=== PATIENT | male | born 1945 | race Caucasian/White ===

== ENCOUNTER 2020-07-14 14:38 | Outpatient (REF) | payer BC, MEDICARE, SELFPAY ==
[2020-07-14 16:47] LABS: Hematocrit 37.7 % (42-52); Hemoglobin 12.1 g/dl (14.0-18.0)
[2020-07-14 17:11] LABS: Anion Gap 15 (12-20); Blood Urea Nitrogen 6 mg/dL (9-16); Carbon Dioxide 25 mmol/L (22-29); Chloride 105 mmol/L (96-108); Estimated Glomerular Filt Rate > 60; Glucose Random 103 mg/dL (60-115); Potassium 3.8 mmol/l (3.3-5.1); Sodium 141 mmol/L (135-145)
[2020-07-15 08:16] LABS: SARS COV2 IgG Positive (Negative)
== END 2020-07-14 14:39 | disposition home or self-care (01) ==
LOC: HO.HMGCLDS 14:38
PROVIDERS: PCP Internal Medicine; Visit Provider Internal Medicine
DX: E78.9 Disorder of lipoprotein metabolism, unspecified (principal); I10 Essential (primary) hypertension; I48.91 Unspecified atrial fibrillation; J44.9 Chronic obstructive pulmonary disease, unspecified; U07.1 COVID-19; Z99.81 Dependence on supplemental oxygen
CPT/HCPCS: 36415; 80048; 85014; 85018; 86769

== ENCOUNTER → 2020-11-13 08:26 | Outpatient (BNVA) | payer BC, MEDICARE, SELFPAY | PROVIDERS: PCP Internal Medicine; Visit Provider Internal Medicine Pulmonary Disease | DX: J44.9 Chronic obstructive pulmonary disease, unspecified (principal); R91.1 Solitary pulmonary nodule; Z99.81 Dependence on supplemental oxygen; Z87.891 Personal history of nicotine dependence | CPT/HCPCS: 99212 ==

== ENCOUNTER 2021-01-05 09:51 | Outpatient (REF) | payer BC, MEDICARE, SELFPAY ==
[2021-01-05 11:51] LABS: Anion Gap 11 (12-20); Blood Urea Nitrogen 9 mg/dL (9-16); Calcium 8.6 mg/dL (8.4-10.2); Carbon Dioxide 26 mmol/L (22-29); Chloride 107 mmol/L (96-108); Estimated Glomerular Filt Rate > 60; Glucose Random 113 mg/dL (60-115); Sodium 140 mmol/L (135-145)
[2021-01-05 12:03] LABS: B Type Natriuretic Peptide 135 pg/mL (<100)
== END 2021-01-05 09:52 | disposition home or self-care (01) ==
LOC: HO.HMGCLDS 09:51
PROVIDERS: PCP Internal Medicine; Visit Provider Internal Medicine Cardiovascular Disease
DX: I48.0 Paroxysmal atrial fibrillation (principal)
CPT/HCPCS: 36415; 80048; 83735; 83880

== ENCOUNTER → 2021-03-02 12:41 | Outpatient (BNVA) | payer BC, MEDICARE, SELFPAY | PROVIDERS: PCP Internal Medicine; Visit Provider Internal Medicine Pulmonary Disease ==

== ENCOUNTER 2021-03-13 08:53 | Outpatient (REF) | payer BC, MEDICARE, SELFPAY ==
[2021-03-13 11:30] LABS: Glucose Urine UA NEG (NEG); Leukocyte Esterase Urine NEG (NEG); Nitrite Urine NEG (NEG); Specific Gravity - Urine 1.015 (1.005-1.025); Urine Blood NEG (NEG); Urine Ketones NEG (NEG); Urine Protein NEG (NEG-TRACE)
[2021-03-13 11:36] LABS: Appearance Urine CLEAR; Color Urine YELLOW
== END 2021-03-13 08:54 | disposition home or self-care (01) ==
LOC: HO.HMGCLDS 08:53
PROVIDERS: PCP Internal Medicine; Visit Provider Internal Medicine
DX: R82.90 Unspecified abnormal findings in urine (principal)
CPT/HCPCS: 81003

== ENCOUNTER → 2021-03-29 13:41 | Outpatient (BNVA) | payer BC, MEDICARE, SELFPAY | PROVIDERS: PCP Internal Medicine; Visit Provider Urology ==

== ENCOUNTER → 2021-05-31 09:51 | Outpatient (BNVA) | payer BC, MEDICARE, SELFPAY | PROVIDERS: PCP Internal Medicine; Visit Provider Internal Medicine Pulmonary Disease ==

== ENCOUNTER → 2021-10-09 13:08 | Outpatient (BNVA) | payer BC, MEDICARE, SELFPAY | PROVIDERS: PCP Internal Medicine; Visit Provider Internal Medicine Pulmonary Disease ==

== ENCOUNTER 2021-10-24 12:29 | Outpatient (REF) | payer BC, MEDICARE, SELFPAY ==
--- NOTE | 2021-10-24 | PFT_ITS ---
FLOWS: FEV1 38% of predicted at 1.07 L. FVC 61% of predicted at 2.40 L. FEV1 to FVC ratio of 0.45. No bronchodilator response. LUNG VOLUMES: Total lung capacity 80% of predicted at 5.32 L. Residual volume 114% of predicted at 2.81 L. Slow vital capacity 60% of predicted at 2.52 L. Expiratory reserve volume 51% of predicted at 0.56 L. Diffusion capacity is moderately decreased, diffusion capacity adjust to being mildly decreased after correction for alveolar ventilation. IMPRESSION: Severe obstructive ventilatory defect with no bronchodilator response. Decreased diffusion capacity suggests emphysema. MD ENE Rodriguez/MODL / [id number]
== END 2021-10-24 12:30 | disposition home or self-care (01) ==
LOC: HO.RESP 12:29
PROVIDERS: PCP Internal Medicine; Visit Provider Internal Medicine Pulmonary Disease
DX: R06.00 Dyspnea, unspecified (principal)
CPT/HCPCS: 94060; 94727; 94729

== ENCOUNTER 2021-12-24 12:21 | Outpatient (REF) | payer BC, MEDICARE, SELFPAY ==
[2021-12-24 13:38] LABS: MANUAL DIFF FLAG NO
[2021-12-24 13:49] LABS: Basophils Absolute Auto 0.1 X10*3/uL (0.0-0.2); Basophils Percent Auto 1.2 % (0-2); Eosinophils Absolute Auto 0.2 X10*3/uL (0.0-0.4); Eosinophils Percent Auto 2.8 % (0-4); Hematocrit 38.9 % (42.0-52.0); Hemoglobin 12.4 g/dl (14.0-18.0); Imm Gran Abs Auto 0.03 X10*3/uL (0.00-0.03); Imm Gran Pct Auto 0.4 % (0.0-0.4); Lymphocytes Absolute Auto 2.3 X10*3/uL (1.2-4.9); Lymphocytes Percent Auto 28.1 % (20-40); Mean Corpuscular HGB Conc 31.9 g/dl (31.0-36.0); Mean Corpuscular Hemoglobin 26.8 pg (27.0-33.0); Mean Platelet Volume 8.9 fL (9.4-12.4); Monocytes Absolute Auto 0.9 X10*3/uL (0.1-1.2); Monocytes Percent Auto 11.1 % (2-11); Neutrophils Absolute Auto 4.6 x10*3/uL (2.0-8.3); Neutrophils Percent Auto 56.4 % (45-73); Platelet Count 417 X10*3/uL (160-400); Red Blood Count 4.63 X10*6/uL (4.60-5.80); Red Cell Distribution Width 16.1 % (11.0-16.0); White Blood Count 8.2 X10*3/uL (4.8-10.8)
[2021-12-24 13:54] LABS: INTERNATIONAL NORM RATIO 1.2 (0.9-1.1); Prothrombin Time 13.2 SEC (9.9-13.0)
[2021-12-24 14:12] LABS: Alanine Aminotransferase 11 U/L (0-40); Albumin Level 3.9 g/dL (3.5-5.0); Alkaline Phosphatase 82 U/L (39-117); Anion Gap 12 (12-20); Aspartate Amino Transferase 15 U/L (5-37); Bilirubin Total 0.9 mg/dL (0.0-1.0); Blood Urea Nitrogen 14 mg/dL (9-16); Calcium 9.2 mg/dL (8.4-10.2); Carbon Dioxide 24 mmol/L (22-29); Chloride 106 mmol/L (96-108); Estimated Glomerular Filt Rate > 60; Glucose Random 100 mg/dL (60-115); Potassium 4.4 mmol/L (3.3-5.1); Sodium 138 mmol/L (135-145); Total Protein 6.7 g/dL (6.5-8.0)
== END 2021-12-24 12:22 | disposition home or self-care (01) ==
LOC: HO.HMGCLDS 12:21
PROVIDERS: Absent Provider Nurse Practitioner Family; PCP Internal Medicine; Visit Provider Internal Medicine
DX: I25.2 Old myocardial infarction (principal); I25.118 Atherosclerotic heart disease of native coronary artery with other forms of angina pectoris; I48.0 Paroxysmal atrial fibrillation; I10 Essential (primary) hypertension; J44.9 Chronic obstructive pulmonary disease, unspecified
CPT/HCPCS: 36415; 80048; 80053; 85025; 85610

== ENCOUNTER 2022-10-25 11:59 | Outpatient (REF) | payer BC, MEDICARE, SELFPAY | END 2022-10-25 12:00 | disposition home or self-care (01) | LOC: HO.HOSX 11:59 | PROVIDERS: Visit Provider Physician Assistant | DX: Z13.89 Encounter for screening for other disorder (principal) ==

== ENCOUNTER 2023-06-04 10:40 | Outpatient (AMB) | payer BC, MEDICARE, SELFPAY ==
[2023-06-04 10:47] VITALS: BP 142/80; PULSE 72; O2SAT 100; BMI 21.6
--- NOTE | 2023-06-04 10:47 | A.OFFVIS_ITS ---
Intake Vital Signs 06/04/23 10:47 Height 5 ft 8 in Weight 142 lb BMI 21.6 BP 142/80 H Blood Pressure Location Rt brachial Position Sitting Pulse 72 Pulse Source Pulse Oximeter Pulse Oximetry (%) 100 Oxygen Delivery Method Room Air Intake Visit Reasons: SWV G0439- needs PHQ9 Allergies lisinopril [LISINOPRIL] Allergy (Severe, Verified 06/04/23 10:48) Angioedema Penicillins [PENICILLINS] Allergy (Severe, Verified 06/04/23 10:48) Anaphylaxis erythromycin base [ERYTHROMYCIN BASE] Allergy (Intermediate, Verified 06/04/23 10:48) Rash penicillin V Allergy (Unknown, Verified 06/04/23 10:48) throat swelling and rash, anaphylaxis Medication List - Last Reconciled 06/04/23 by Mohinder Waller MD apixaban 5 mg PO BID atorvastatin 80 mg PO DAILY [id number]-poklqnyp-hjonepjoov 160-9-4.8 mcg/actuation (Breztri Aerosphere) 2 inhalations inhalation BID carvedilol 12.5 mg PO Q12H diltiazem HCl ER 360 mg PO DAILY hydralazine 50 mg PO BID 90 days ipratropium bromide 2 sprays intranasal TID isosorbide mononitrate ER 30 mg PO QAM metoprolol tartrate 50 mg PO BID omeprazole 20 mg PO BID HPI [facility] [id number]- needs PHQ9 HPI Details Patient is 77-year-old gentleman who is now started to have memory issues He is still able to drive and is quite alert today But compared to before his memory is being affected. I am booking him appointment with the Neurology for further evaluation So far patient is able to manage his finances and live independently with his girlfriend. He has missed his Cardiology and Pulmonary hip appointments because he forgot. I have printed last cardiology and Pulmonary notes and handed to patient. He lives 30 minutes away. I think it will be better if he finds our primary care close by so he can get established with specialist nearby as well Blood pressure is 142/80, all his is blood pressure medications through Cardiology office And his COPD is stable patient does have oxygen at home but he is not using it anymore, he is doing well with inhalers. GERD is stable with omeprazole 20 mg b.i.d.. He tells me that his last blood test was December of this year. That is why I have ordered labs to keep an eye on his CBC kidney function and liver functions. HPI Comments History of Present Illness Details AWV Medical/social history reviewed Past medical history reviewed [place] of care / care team list updated Surgical/ hospitalization history reviewed Current medications including OTC and supplements reviewed Family history reviewed Tobacco controlled form updated Alcohol use form updated Illicit drug use in social history reviewed Current diagnosis of depression ?screening updated Appropriate PHQ 2/PHQ-9 completed . Vital signs reviewed Alcohol tobacco drug use reviewed and discussed . MMSE completed . ? Fall risk: ?Assessed Fall history: ?Yes Have you had any falls with injury in the past year?? yes Have you had 2 or more falls in the past year??yes Fall risk assessment completed Home safety discussed with the patient Functional ability assessed and discussed and documented Activities of daily living reviewed and appropriate actions taken . HRA filled out by the patient reviewed by provider and scanned . Appropriate written screening schedule established . Any health advise needed provided . Advance care planning discussed with the patient appropriate paperwork filled and scanned . Examination IPPE/AWE: Balance intact Romberg failed Tandem walk failed walk-in turn intact rise from sit to stand intact . ?Hearing ?whisper test failed . Medication list reviewed, patient is stable on medications All other providers patient is seeing discussed and noted . [facility] Medical History Oxygen dependent Sleep apnea Lipid disorder Chronic GERD BPH (benign prostatic hyperplasia) Lung cancer Atrial fibrillation Hypertension, essential COPD (chronic obstructive pulmonary disease) Surgical History History of lobectomy of lung History of cataract surgery Family History Father No problems noted. Mother No problems noted. Brother Lung cancer Other Mental health disorder Substance use disorder Social History Housing: Other Alcohol intake: never Patient Tobacco Use Status: Former Tobacco user Quit Date: 1979 Tobacco use type: Cigarette e-Cigarette/Vaping Use: Never Used service: Yes Current occupational status: retired Cognitive needs: No Hearing needs: No Vision needs: No Questionnaire Medicare Wellness Checkup [age] What gender do you identify with?: male During the past 4 weeks, how much have you been bothered by emotional problems such as feeling anxious, depressed, irritable, sad or downhearted, and blue?: mo derately During the past 4 weeks, has your physical & emotional health limited your social activities with family, friends, neighbors, or groups?: moderately During the past 4 weeks, how much bodily pain have you generally had?: moderate pain During the past 4 weeks, was someone available to help you if you needed & wanted help?: yes, a little During the past 4 weeks, what was the hardest physical activity you could do for at least 2 minutes?: moderate Can you get to places out of walking distance without help? (For eg., can you travel alone on buses, taxis or drive your car?): No Can you go shopping for groceries or clothes without someone's help?: Yes Can you prepare your own meals?: Yes Can you do your housework without help?: Yes Because of any health problems, do you need the help of another person with your personal care needs such as eating, bathing, dressing or getting around the house?: Yes Can you handle your own money without help?: No During the past 4 weeks, how would you rate your health in general?: fair During the past 4 weeks how have things been going for you?: good & bad parts about equal Are you having difficulties driving your car?: yes, often Do you always fasten your seat belt when you are in a car?: yes, usually During past 4 weeks, have you been bothered by the following: sometimes: Falling or dizzy when standing up, Sexual problems? and Problems using the telephone?, often: Trouble eating well? and Tiredness or fatigue? and always: Teeth or denture problems? Have you fallen 2 or more times in the past year?: Yes Are you afraid of falling?: Yes Are you a smoker?: no During the past 4 weeks, how many drinks of wine, beer, or other alcoholic beverages did you have?: no alcohol at all Do you exercise for about 20 minutes 3 or more times a week?: no, I usually do not exercise this much Have you been given information to help with the following?: yes: Hazards in your house that might hurt you? and yes: Keeping track of your medications? How often do you have trouble taking medicines the way you have been told to take them?: I seldom take medications as prescribed How confident are you that you can control & manage most of your health problems?: not very confident What is your race?: White Mini Mental State Exam (MMSE) Orientation What is the (year) (season) (date) (day) (month)?: year, season, date, day and month Where are we (state) (county) (town or city) (hospital) (floor)?: state, county, town or city, hospital/clinic and floor Score Score: 10 Activity of Daily Living Bathing - sponge bath, tub bath or shower: receives no assistance (gets in/out by self, if usual bathing means Dressing - getting clothes from closets & drawers, including inner/outer garments & fasteners.: gets clothes & gets completely dressed without help Toileting - going to the 'toilet room' for urine/bowel elimination & cleaning self/arranging clothes: goes to toilet room, cleans self, arranges clothes without help Transfer: moves in & out of bed and chair without help (may use support object) Continence: controls urination/bowel movements completely by self Feeding: feeds self without help Total Score: 0 Information obtained from: patient Using telephone: independent Traveling: independent Shopping: independent Preparing meals: independent Housework: independent Taking medicine: independent Managing money: independent PHQ-9 Over the last 2 weeks, how often have you been bothered by any of the following problems? 1. Little interest or pleasure in doing things: more than half the days 2. Feeling down, depressed, or hopeless: not at all 3. Trouble falling or staying asleep, or sleeping too much: nearly every day 4. Feeling tired or having little energy: not at all 5. Poor appetite or overeating: more than half the days 6. Feeling bad about yourself - or that you are a failure or have let yourself or your family down: not at all 7. Trouble concentrating on things, such as reading the newspaper or watching television: more than half the days 8. Moving or speaking so slowly that other people could have noticed. Or the opposite - being so fidgety or restless that you have been moving around a lot more than usual: more than half the days 9. Thoughts that you would be better off or of hurting yourself in some way: not at all Total score: 11 Depression Screening Interpretation: Positive Depression Screening Follow-up: Existing condition and Community Mental Health Worker F/U Depression Screening Done: Yes [id number] - PHQ-9 Billing: Yes Source: Developed by Drs. Haja Magallon, Roseann Hicks, Cristiano Ward and colleagues, with an educational grady from [employer]. Review of Systems Const Denies chills and Denies fever(s) ENT Denies epistaxis and Denies nasal discharge Card Denies chest pain Resp Denies chest congestion, Denies cough and Denies hemoptysis GI Denies diarrhea and Denies nausea Skin/Breast Denies rash Neuro Reports no additional complaints Psych Reports no additional complaints Endo Reports no additional complaints Physical Exam Vital Signs: Last Vital Signs Pulse 72 06/04/23 10:47 BP 142/80 H 06/04/23 10:47 Pulse Ox 100 06/04/23 10:47 Oxygen Delivery Method Room Air 06/04/23 10:47 BMI result Body Mass Index 21.6 Const General: cooperative, comfortable and no acute distress Orientation/consciousness: patient oriented x3 HEENT Head: Yes normocephalic Eyes General: appearance normal, both eyes and all related structures Neck Other: Supple Neck: Yes supple Resp Effort & Inspection: normal respiratory effort, no cough and no stridor Cardio Heart sounds: S1 normal heart sound present and S2 normal heart sound present Skin General skin exam: turgor normal Neuro Other: Motor sensory intact General: patient oriented x3, tone normal and moves all extremities Extrem Other: No lower extremity swelling. Right lower extremity: no edema Left lower extremity: no edema Psych Other: Normal effect, speech clear Assessment & Plan Assessment & Plan (1) Medicare annual wellness visit, subsequent: Code(s): Z00.00 - Encounter for general adult medical examination without abnormal findings (2) Memory changes: Code(s): R41.3 - Other amnesia (3) Lipid disorder: Code(s): E78.9 - Disorder of lipoprotein metabolism, unspecified (4) BPH (benign prostatic hyperplasia): Code(s): N40.0 - Benign prostatic hyperplasia without lower urinary tract symptoms Qualifiers: Lower urinary tract symptom presence: symptoms absent Qualified Code(s): N40.0 - Benign prostatic hyperplasia without lower urinary tract symptoms (5) Chronic GERD: Code(s): K21.9 - Gastro-esophageal reflux disease without esophagitis (6) Atrial fibrillation: Comment: Dr. Michelle net technical architect Code(s): I48.91 - Unspecified atrial fibrillation Qualifiers: Atrial fibrillation type: permanent Qualified Code(s): I48.21 - Permanent atrial fibrillation (7) Hypertension, essential: Code(s): I10 - Essential (primary) hypertension (8) COPD (chronic obstructive pulmonary disease): Code(s): J44.9 - Chronic obstructive pulmonary disease, unspecified Qualifiers: COPD type: emphysema Emphysema type: panlobular Qualified Code(s): J43.1 - Panlobular emphysema Plan Patient is 77-year-old gentleman who is now started to have memory issues He is still able to drive and is quite alert today But compared to before his memory is being affected. I am booking him appointment with the Neurology for further evaluation So far patient is able to manage his finances and live independently with his girlfriend. He has missed his Cardiology and Pulmonary hip appointments because he forgot. I have printed last cardiology and Pulmonary notes and handed to patient. He lives 30 minutes away. I think it will be better if he finds our primary care close by so he can get established with specialist nearby as well Blood pressure is 142/80, all his is blood pressure medications through Cardiology office And his COPD is stable patient does have oxygen at home but he is not using it anymore, he is doing well with inhalers. GERD is stable with omeprazole 20 mg b.i.d.. He tells me that his last blood test was December of this year. That is why I have ordered labs to keep an eye on his CBC kidney function and liver functions. Orders: Orders LDL Cholesterol Direct Today E78.9 - Disorder of lipoprotein metabolism, unspecified, I10 - Essential (primary) hypertension, I48.91 - Unspecified atrial fibrillation, J44.9 - Chronic obstructive pulmonary disease, unspecified, K21.9 - Gastro-esophageal reflux disease without esophagitis, N40.0 - Benign prostatic hyperplasia without lower urinary tract symptoms, R41.3 - Other amnesia TSH reflex Free T4 Today E78.9 - Disorder of lipoprotein metabolism, unspecified, I10 - Essential (primary) hypertension, I48.91 - Unspecified atrial fibrillation, J44.9 - Chronic obstructive pulmonary disease, unspecified, K21.9 - Gastro-esophageal reflux disease without esophagitis, N40.0 - Benign prostatic hyperplasia without lower urinary tract symptoms, R41.3 - Other amnesia Vitamin B12 Today E78.9 - Disorder of lipoprotein metabolism, unspecified, I10 - Essential (primary) hypertension, I48.91 - Unspecified atrial fibrillation, J44.9 - Chronic obstructive pulmonary disease, unspecified, K21.9 - Gastro- esophageal reflux disease without esophagitis, N40.0 - Benign prostatic hyperplasia without lower urinary tract symptoms, R41.3 - Other amnesia Complete Blood Count Auto Diff Today E78.9 - Disorder of lipoprotein metabolism, unspecified, I10 - Essential (primary) hypertension, I48.91 - Unspecified atrial fibrillation, J44.9 - Chronic obstructive pulmonary disease, unspecified, K21.9 - Gastro-esophageal reflux disease without esophagitis, N40.0 - Benign prostatic hyperplasia without lower urinary tract symptoms, R41.3 - Other amnesia Comprehensive Met. Panel Today E78.9 - Disorder of lipoprotein metabolism, unspecified, I10 - Essential (primary) hypertension, I48.91 - Unspecified atrial fibrillation, J44.9 - Chronic obstructive pulmonary disease, unspecified, K21.9 - Gastro-esophageal reflux disease without esophagitis, N40.0 - Benign prostatic hyperplasia without lower urinary tract symptoms, R41.3 - Other amnesia Vitamin D 25-OH (D2 and D3) Today E78.9 - Disorder of lipoprotein metabolism, unspecified, I10 - Essential (primary) hypertension, I48.91 - Unspecified atrial fibrillation, J44.9 - Chronic obstructive pulmonary disease, unspecified, K21.9 - Gastro-esophageal reflux disease without esophagitis, N40.0 - Benign prostatic hyperplasia without lower urinary tract symptoms, R41.3 - Other amnesia Referrals Neurology Referral R41.3 - Other amnesia Quality Reporting (2019) Depression/Bipolar (159/160/161/177) PHQ-9: Total score: 11 Coding Level of Care Code Medicare Subsequent (G0439) Est Pt Level 4 (96168) Diagnoses Medicare annual wellness visit, subsequent Z00.00 Memory changes R41.3 Lipid disorder E78.9 Benign prostatic hyperplasia without lower urinary tract symptoms N40.0 Lower urinary tract symptom presence: symptoms absent Chronic GERD K21.9 Permanent atrial fibrillation I48.21 Atrial fibrillation type: permanent Hypertension, essential I10 Panlobular emphysema J43.1 COPD type: emphysema Emphysema type: panlobular CPT Codes Advance Care Planning - Advance Care Planning discussion: On file, no changes ([id number]) Advance Care Planning Advance Care Planning discussion: On file, no changes
== END 2023-06-04 12:09 | disposition home or self-care (01) ==
PROVIDERS: Visit Provider Internal Medicine
DX: Z00.00 Encounter for general adult medical examination without abnormal findings (principal); I48.21 Permanent atrial fibrillation; J43.1 Panlobular emphysema; R41.3 Other amnesia; E78.9 Disorder of lipoprotein metabolism, unspecified; N40.0 Benign prostatic hyperplasia without lower urinary tract symptoms; K21.9 Gastro-esophageal reflux disease without esophagitis; I10 Essential (primary) hypertension
CPT/HCPCS: 1123F; G0439

== ENCOUNTER 2023-07-28 10:04 | Outpatient (REF) | payer MEDICARE, BC, SELFPAY ==
[2023-07-28 13:37] LABS: MANUAL DIFF FLAG NO
[2023-07-28 14:07] LABS: Basophils Absolute Auto 0.1 X10*3/uL (0.0-0.2); Basophils Percent Auto 1.1 % (0-2); Eosinophils Absolute Auto 0.2 X10*3/uL (0.0-0.4); Eosinophils Percent Auto 2.7 % (0-4); Hematocrit 39.6 % (42.0-52.0); Hemoglobin 12.6 g/dl (14.0-18.0); Imm Gran Abs Auto 0.03 X10*3/uL (0.00-0.03); Imm Gran Pct Auto 0.3 % (0.0-0.4); Lymphocytes Percent Auto 21.7 % (20-40); Mean Corpuscular HGB Conc 31.8 g/dl (31.0-36.0); Mean Corpuscular Hemoglobin 27.6 pg (27.0-33.0); Mean Corpuscular Volume 86.8 fL (80.0-98.0); Monocytes Absolute Auto 0.8 X10*3/uL (0.1-1.2); Monocytes Percent Auto 8.5 % (2-11); Neutrophils Absolute Auto 5.9 x10*3/uL (2.0-8.3); Neutrophils Percent Auto 65.7 % (45-73); Platelet Count 407 X10*3/uL (160-400); Red Blood Count 4.56 X10*6/uL (4.60-5.80); Red Cell Distribution Width 14.5 % (11.0-16.0)
[2023-07-28 14:30] LABS: Alanine Aminotransferase 9 U/L (0-40); Albumin Level 3.9 g/dL (3.5-5.0); Alkaline Phosphatase 84 U/L (39-117); Anion Gap 13 (12-20); Aspartate Amino Transferase 17 U/L (5-37); Bilirubin Total 0.5 mg/dL (0.0-1.0); Blood Urea Nitrogen 10 mg/dL (9-16); Calcium 8.9 mg/dL (8.4-10.2); Carbon Dioxide 24 mmol/L (22-29); Chloride 108 mmol/L (96-108); Estimated Glomerular Filt Rate > 60; Glucose Random 101 mg/dL (60-115); Potassium 4.5 mmol/L (3.3-5.1); Sodium 140 mmol/L (135-145); TSH reflex Free T4 2.12 uIU/mL (0.32-4.0); Total Protein 7.1 g/dL (6.5-8.0)
[2023-07-28 14:35] LABS: Vitamin B12 336 pg/mL (200-900)
[2023-07-29 14:13] LABS: LDL Cholesterol Direct 154 mg/dL (<100)
[2023-08-01 15:23] LABS: Vitamin D 25-OH, D2 <4 ng/mL; Vitamin D 25-OH, D3 15 ng/mL; Vitamin D 25-OH, Total 15 ng/mL (30-100)
== END 2023-07-28 10:05 | disposition home or self-care (01) ==
LOC: HO.HMGCLDS 10:04
PROVIDERS: PCP Internal Medicine; Visit Provider Internal Medicine
DX: R41.3 Other amnesia (principal); E78.9 Disorder of lipoprotein metabolism, unspecified; N40.0 Benign prostatic hyperplasia without lower urinary tract symptoms; K21.9 Gastro-esophageal reflux disease without esophagitis; I48.91 Unspecified atrial fibrillation; I10 Essential (primary) hypertension; J44.9 Chronic obstructive pulmonary disease, unspecified
CPT/HCPCS: 36415; 80053; 82306; 82607; 83721; 84443; 85025

== ENCOUNTER 2023-07-29 12:50 | Outpatient (AMB) | payer MEDICARE, BC, SELFPAY ==
[2023-07-29 13:01] VITALS: BP 152/78; PULSE 79; O2SAT 97; BMI 22.0
--- NOTE | 2023-07-29 13:01 | A.OFFPC_ITS ---
Vital Signs 07/29/23 13:01 Height 5 ft 8 in Weight 144 lb 8 oz BMI 22.0 BP 152/78 H Blood Pressure Location Rt brachial Position Sitting Pulse 79 Pulse Source Pulse Oximeter Pulse Oximetry (%) 97 Oxygen Delivery Method Room Air Intake Visit Reasons: Medication follow up Allergies lisinopril [LISINOPRIL] Allergy (Severe, Verified 07/29/23 13:02) Angioedema Penicillins [PENICILLINS] Allergy (Severe, Verified 07/29/23 13:02) Anaphylaxis erythromycin base [ERYTHROMYCIN BASE] Allergy (Intermediate, Verified 07/29/23 13:02) Rash penicillin V Allergy (Unknown, Verified 07/29/23 13:02) throat swelling and rash, anaphylaxis Medication List - Last Reconciled 07/29/23 by Mohinder Waller MD apixaban 5 mg PO BID atorvastatin 80 mg PO DAILY gfvbamlzkv-mcmahzqg-xvvfkeuvsg 160-9-4.8 mcg/actuation (Breztri Aerosphere) 2 inhalations inhalation BID carvedilol 12.5 mg PO Q12H diltiazem HCl ER 360 mg PO DAILY hydralazine 50 mg PO BID 90 days ipratropium bromide 2 sprays intranasal TID isosorbide mononitrate ER 30 mg PO QAM metoprolol tartrate 50 mg PO BID omeprazole 20 mg PO BID Tobacco use date assessed: 07/29/23 Fall risk assessment: 2 + Falls in past year Last assessed Fall Risk: 07/29/23 Dental Screening Dental Screen Date: 07/29/23 Did you have a dental visit in the last 12 months?: No Did you have a dental problem in the last 6 months where you did not have access to dental care?: No Was dental information given to patient?: No HPI Medication follow up HPI Details Patient is 77-year-old gentleman came in today to have a letter formulated for his work Patient would like to have a list of all his medical problems and a letter stating that patient have gastroesophageal reflux disease He is also requesting refill on omeprazole 20 mg that he is taking b.i.d. Patient is having memory issues, he finally got a letter form Neurology office to call in book appointment. Blood pressure is slightly elevated, notified patient to call his cardiopulmonary physical therapist office and have a follow-up appointment blood pressure is managed through them. [facility] Medical History Oxygen dependent Sleep apnea Lipid disorder Chronic GERD BPH (benign prostatic hyperplasia) Lung cancer Atrial fibrillation Hypertension, essential COPD (chronic obstructive pulmonary disease) Surgical History History of lobectomy of lung History of cataract surgery Family History Father No problems noted. Mother No problems noted. Brother Lung cancer Other Mental health disorder Substance use disorder Social History Housing: Other Alcohol intake: never Patient Tobacco Use Status: Former Tobacco user Quit Date: 1979 Tobacco use type: Cigarette e-Cigarette/Vaping Use: Never Used service: Yes Current occupational status: retired Cognitive needs: No Hearing needs: No Vision needs: No Questionnaire Thrive Questionnaire Date Thrive assessed: 10/26/21 AUDIT C Alcohol Use Questionnaire (AUDIT-C) 1. How often do you have a drink containing alcohol?: Never 3. How often do you have six or more drinks on one occasion?: Never Total Score: 0 Score Reviewed/Action Taken: Yes SHAHBAZ-7 AMB Questionnaire SHAHBAZ-7 Date SHAHBAZ - 7 assessed: 10/26/21 Source: Developed by Drs. Haja Magallon, Roseann Hicks, Cristiano Ward and colleagues, with an educational grady from [employer]. Review of Systems Const Denies chills and Denies fever(s) ENT Denies epistaxis and Denies nasal discharge Card Denies chest pain Resp Denies chest congestion, Denies cough and Denies hemoptysis GI Denies diarrhea and Denies nausea Skin/Breast Denies rash Neuro Reports no additional complaints Psych Reports no additional complaints Endo Reports no additional complaints Physical exam (Primary Care) Vital Signs: Last Vital Signs Pulse 79 07/29/23 13:01 BP 152/78 H 07/29/23 13:01 Pulse Ox 97 07/29/23 13:01 Oxygen Delivery Method Room Air 07/29/23 13:01 BMI result Body Mass Index 22.0 Tobacco/Smoking Status: Tobacco use Status Tobacco use date assessed 07/29/23 07/29/23 13:03 Patient Tobacco Use Status Former Tobacco user 07/29/23 13:03 Tobacco use type Cigarette 07/29/23 13:03 e-Cigarette/Vaping Use Never Used 07/29/23 13:03 Thrive Assessment: Date of Thrive Assessment Date Thrive assessed 10/26/21 07/29/23 13:03 Const General: cooperative, comfortable and no acute distress Orientation/consciousness: patient oriented x3 HENMT Head: Yes normocephalic Eyes General: appearance normal, both eyes and all related structures Neck Neck: Yes supple Resp Effort & Inspection: normal respiratory effort, no cough and no stridor Cardio Rhythm: regular rhythm Heart sounds: S1 normal heart sound present and S2 normal heart sound present Skin General skin exam: turgor normal Neuro General: patient oriented x3, tone normal and moves all extremities Extrem Right lower extremity: no edema Left lower extremity: no edema Assessment and Plan Assessment & Plan (1) Chronic GERD: Code(s): K21.9 - Gastro-esophageal reflux disease without esophagitis (2) Atrial fibrillation: Comment: Dr. Michelle cardiopulmonary physical therapist Code(s): I48.91 - Unspecified atrial fibrillation Qualifiers: Atrial fibrillation type: permanent Qualified Code(s): I48.21 - Permanent atrial fibrillation (3) Hypertension, essential: Code(s): I10 - Essential (primary) hypertension (4) COPD (chronic obstructive pulmonary disease): Code(s): J44.9 - Chronic obstructive pulmonary disease, unspecified Qualifiers: COPD type: emphysema Emphysema type: panlobular Qualified Code(s): J43.1 - Panlobular emphysema (5) Multiple medical problems: Code(s): R69 - Illness, unspecified (6) Lung cancer: Comment[place] [facility] [place] Code(s): C34.90 - Malignant neoplasm of unspecified part of unspecified bronchus or lung Qualifiers: Laterality: right Lung location: upper lobe of lung Qualified Code(s): C34.11 - Malignant neoplasm of upper lobe, right bronchus or lung Plan Patient is 77-year-old gentleman came in today to have a letter formulated for his work Patient would like to have a list of all his medical problems and a letter stating that patient have gastroesophageal reflux disease He is also requesting refill on omeprazole 20 mg that he is taking b.i.d. Patient is having memory issues, he finally got a letter form Neurology office to call in book appointment. Blood pressure is slightly elevated, notified patient to call his cardiopulmonary physical therapist office and have a follow-up appointment blood pressure is managed through them. 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
== END 2023-07-29 16:54 | disposition home or self-care (01) ==
PROVIDERS: PCP Internal Medicine; Visit Provider Internal Medicine
DX: K21.9 Gastro-esophageal reflux disease without esophagitis (principal); I48.21 Permanent atrial fibrillation; J43.1 Panlobular emphysema; C34.11 Malignant neoplasm of upper lobe, right bronchus or lung; I10 Essential (primary) hypertension; R69 Illness, unspecified
CPT/HCPCS: 99214

== ENCOUNTER 2023-09-04 14:41 | Outpatient (AMB) | payer MEDICARE, BC, SELFPAY ==
[2023-09-04 14:50] VITALS: BP 132/62; PULSE 65; O2SAT 99; BMI 21.6
--- NOTE | 2023-09-04 14:50 | A.OFFVIS_ITS ---
Intake Vital Signs 09/04/23 14:50 Height 5 ft 8 in Weight 142 lb 3.17 oz BMI 21.6 BP 132/62 Blood Pressure Location Rt brachial Position Sitting Pulse 65 Pulse Source Doppler Pulse Oximetry (%) 99 Oxygen Delivery Method Room Air Intake Visit Reasons: copd Allergies lisinopril [LISINOPRIL] Allergy (Severe, Verified 09/04/23 14:58) Angioedema Penicillins [PENICILLINS] Allergy (Severe, Verified 09/04/23 14:58) Anaphylaxis erythromycin base [ERYTHROMYCIN BASE] Allergy (Intermediate, Verified 09/04/23 14:58) Rash penicillin V Allergy (Unknown, Verified 09/04/23 14:58) throat swelling and rash, anaphylaxis HPI copd HPI Details 77-year-old gentleman, former greater th an 30 pack-year smoker, quit 2006 with underlying 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 supplemental oxygen dependent COPD.? He continues BrezTri and albuterol MDI/DuoNebs with reasonable control of his underlying symptoms.?He denies recent exacerbation of his COPD. He recently been diagnosed with 4 vessel coronary artery disease. He wants to transfer his cardiology care to [facility]. [facility] Medical History Oxygen dependent Sleep apnea Lipid disorder Chronic GERD BPH (benign prostatic hyperplasia) Lung cancer Atrial fibrillation Hypertension, essential COPD (chronic obstructive pulmonary disease) Surgical History History of lobectomy of lung History of cataract surgery Family History Father No problems noted. Mother No problems noted. Brother Lung cancer Other Mental health disorder Substance use disorder Social History Housing: Other Alcohol intake: never Patient Tobacco Use Status: Former Tobacco user Quit Date: 1979 Tobacco use type: Cigarette e-Cigarette/Vaping Use: Never Used service: Yes Current occupational status: retired Cognitive needs: No Hearing needs: No Vision needs: No Review of Systems Const Denies daytime sleepiness, Denies excessive sweating, Denies fatigue, Denies fever(s), Denies lethargy, Denies malaise, Denies night sweats, Denies snoring and Denies weight loss Eyes Denies blurry vision and Denies itchy eyes ENT Denies nasal congestion, Denies post nasal drip, Denies sinus pain, Denies sinus pressure and Denies other ( Thrush) Card Denies chest pain, Denies pedal edema, Denies dyspnea, Denies orthopnea and Denies paroxysmal nocturnal dyspnea Resp Denies cough, Denies hemoptysis, Denies excessive phlegm production, Denies dyspnea, Denies snoring and Denies wheezing GI Denies abdominal pain and Denies heartburn Musc Denies myalgias, Denies arthralgias and Denies joint swelling Skin/Breast Denies rash Neuro Denies memory loss and Denies seizure-like activity Psych Denies abnormal sleep pattern, Denies anxiety and Denies memory loss Endo Denies excessive sweating, Denies fatigue and Denies heat intolerance Adán/Lymph Denies easy bruising Aller/Immun Denies itchy eyes, Denies seasonal rhinorrhea and Denies wheezing Physical Exam Vital Signs: Last Vital Signs Pulse 65 09/04/23 14:50 BP 132/62 09/04/23 14:50 Pulse Ox 99 09/04/23 14:50 Oxygen Delivery Method Room Air 09/04/23 14:50 BMI result Body Mass Index 21.6 Const General: no acute distress and alert Nutritional Appearance: not obese Orientation/consciousness: Other orientation findings ( oriented) HEENT Head: Yes atraumatic Eyes General: appearance normal, both eyes and all related structures Sclerae: sclerae normal EOM: EOMs intact bilaterally Neck Neck: Yes supple Lymphatic: no lymphadenopathy noted Resp Effort & Inspection: normal respiratory effort and no use of accessory muscles Auscultation: clear to auscultation bilaterally Cardio Rate: regular rate Rhythm: regular rhythm Heart sounds: no gallops, no murmurs and no rubs Skin General skin exam: other ( warm) Extrem General: No clubbing, No cyanosis and No edema Assessment & Plan Assessment & Plan (1) COPD (chronic obstructive pulmonary disease): Code(s): J44.9 - Chronic obstructive pulmonary disease, unspecified Qualifiers: COPD type: emphysema Emphysema type: panlobular Qualified Code(s): J43.1 - Panlobular emphysema Plan: Well controlled on BrezTri and albuterol MDI. Continue current regimen. (2) Oxygen dependent: Code(s): Z99.81 - Dependence on supplemental oxygen Plan: Continue supplemental oxygen to maintain O2 saturation of 88-92%. (3) Coronary artery disease: Code(s): I25.10 - Atherosclerotic heart disease of [place] coronary artery without angina pectoris Plan: Patient wants to transfer his cardiology care to [facility]. Cardiology consultation request placed. (4) Pulmonary nodules: Code(s): R91.8 - Other nonspecific abnormal finding of lung field Plan: Patient continues to follow-up with [facility] thoracic surgery. Orders: Referrals Cardiology Referral I25.10 - Atherosclerotic heart disease of [place] coronary artery without angina pectoris Medications: New nitroglycerin do not exceed 3 doses per episode 0.4 mg sublingual Q5M PRN 60 tabs 0RF chest pain Refilled [id number]-bsyrckpn-fzyrpfbnep 160-9-4.8 mcg/actuation (Breztri Aerosphere) 2 inhalations inhalation BID 10.7 ea 6RF Coding Level of Care Code Est Pt Level 4 (62667) Diagnoses Panlobular emphysema J43.1 COPD type: emphysema Emphysema type: panlobular Oxygen dependent Z99.81 Coronary artery disease I25.10 Pulmonary nodules R91.8
== END 2023-09-04 15:12 | disposition home or self-care (01) ==
PROVIDERS: PCP Internal Medicine; Visit Provider Internal Medicine Pulmonary Disease
DX: J43.1 Panlobular emphysema (principal); Z99.81 Dependence on supplemental oxygen; I25.10 Atherosclerotic heart disease of native coronary artery without angina pectoris; R91.8 Other nonspecific abnormal finding of lung field
CPT/HCPCS: 99214

== ENCOUNTER → 2023-09-04 14:41 | Outpatient (BNVA) | payer MEDICARE, BC, SELFPAY | PROVIDERS: PCP Internal Medicine; Visit Provider Internal Medicine Pulmonary Disease | DX: J43.1 Panlobular emphysema (principal); I25.10 Atherosclerotic heart disease of native coronary artery without angina pectoris; R91.8 Other nonspecific abnormal finding of lung field; Z99.81 Dependence on supplemental oxygen | CPT/HCPCS: 99212 ==

== ENCOUNTER → 2023-09-29 10:04 | Outpatient (BNVA) | payer MEDICARE, BC, SELFPAY | PROVIDERS: PCP Internal Medicine; Visit Provider Internal Medicine Pulmonary Disease ==

== ENCOUNTER 2023-11-18 12:56 | Outpatient (AMB) | payer MEDICARE, BC, SELFPAY ==
[2023-11-18 12:58] VITALS: BP 127/72; PULSE 74; BMI 22.5
--- NOTE | 2023-11-18 12:58 | MHC.OFFVIS ---
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/HELENA Intake Note: New patient dx CAD patient hasn't been taking most of his med's since one of the hospital stays Meat Grader Required: No Allergies lisinopril [LISINOPRIL] Allergy (Severe, Verified 09/29/23 10:54) Angioedema Penicillins [PENICILLINS] Allergy (Severe, Verified 09/29/23 10:54) Anaphylaxis erythromycin base [ERYTHROMYCIN BASE] Allergy (Intermediate, Verified 09/29/23 10:54) Rash penicillin V Allergy (Unknown, Verified 09/29/23 10:54) throat swelling and rash, anaphylaxis Medication List - Last Reconciled 11/18/23 by Trent Triplett MD apixaban 5 mg PO BID txmfrvvudcs-mjkpazzpb-fgioldqc 200-62.5-25 mcg (Trelegy Ellipta) 1 inh inhalation DAILY 30 days nitroglycerin 0.4 mg sublingual Q5M PRN omeprazole 20 mg PO BID HPI HPI Comments History of Present Illness Details Thank you for referring Edwardo in cardiology consultation for management of his cardiovascular issues. He has a very poor historian and seems like he has cognitive issues. He is not able to provide a very accurate history. I to lead him in 2 multiple different history. I did review his old records including prior stenting in 2021 the LAD for what appears to be acute myocardial infarction which was complicated by acute stent thrombosis and was taken to the catholic priest the same day and had a thrombus formation on the newly implanted stent and he underwent a balloon angioplasty. Subsequently in 2021 he had another chest pain event and underwent cardiac catheterization very had extensive stenting from distal to proximal RCA for dissection of his RCA. He said he has had chest pain since he was young man in . However I discussed with him that this is potentially not possible. However he says that he continues to have exertional chest pain. He usually describes this chest pain is sharp pain something inside and symptoms subsided when he rests. Symptoms sound like anginal discomfort. He has also had history of atrial fibrillation although the timeline on this is unclear. He said about couple months ago he had an episode and about of atrial fibrillation he felt rapid heart rate while he was sleeping and then he does went to bed and woke up in the morning in his atrial fibrillation gone. He has not had any other atrial fibrillation episode. Also mentions about heart failure issues although I do not see that any medications he is on currently. He is currently only taking apixaban, omeprazole and his COPD med. He was admitted in October at [facility] with what appears to be a syncopal episode which is suspected to be due to relative hypovolemia and urinary tract infection. At that time it seems like his other cardiac meds including diltiazem and carvedilol and hydralazine as well as isosorbide will discontinued. He comes in today and he complains of the chest pain as above. He also is noted to have normal blood pressure. He has currently not on statin therapy for unclear reason. Does not recall as to why. His last LDL was 150 mg/dL. He denies any clear heart failure symptoms. Although history is very difficult to obtain from him. He has history of lung cancer status post surgery and he said he has lost a lot of weight. [facility] Medical History Paroxysmal atrial fibrillation Atrial fibrillation Oxygen dependent Sleep apnea Lipid disorder Chronic GERD BPH (benign prostatic hyperplasia) Lung cancer Hypertension, essential COPD (chronic obstructive pulmonary disease) Surgical History History of lobectomy of lung History of cataract surgery Family History Father No problems noted. Mother No problems noted. Brother Lung cancer Other Mental health disorder Substance use disorder Social History Housing: Other Alcohol intake: never Patient Tobacco Use Status: Former Tobacco user Quit Date: 1979 Tobacco use type: Cigarette e-Cigarette/Vaping Use: Never Used service: Yes Current occupational status: retired Cognitive needs: No Hearing needs: No Vision needs: No Review of Systems Const Denies chills, Denies daytime sleepiness, Denies fatigue, Denies fever(s), Denies frequent falls, Denies poor appetite, Denies snoring, Denies stops breathing during sleep, Denies weakness, Denies weight gain and Denies weight loss Eyes Denies loss of vision ENT Denies dizziness and Denies hearing loss Card Denies chest pain, Denies claudication, Denies leg edema, Denies lightheadedness, Denies palpitations, Denies dyspnea, Denies dyspnea on exertion and Denies orthopnea Resp Denies cough, Denies excessive phlegm production, Denies dyspnea, Denies dyspnea on exertion, Denies snoring and Denies wheezing GI Denies abdominal pain, Denies hematochezia, Denies change in bowel habits, Denies nausea and Denies vomiting Denies dysuria and Denies urinary frequency Musc Denies arthralgias, Denies muscle weakness, Denies numbness and Denies other (frequent falls) Skin/Breast Denies nail changes and Denies rash Neuro Denies Abnormal speech present, Denies dizziness, Denies frequent falls, Denies loss of vision, Denies memory loss, Denies numbness and Denies weakness Psych Denies depression and Denies memory loss Endo Denies fatigue and Denies palpitations Adán/Lymph Reports easy bruising and Reports other (anemia) Aller/Immun Denies wheezing Physical Exam Vital Signs: Last Vital Signs Pulse 74 11/18/23 12:58 BP 127/72 11/18/23 12:58 BMI result Body Mass Index 22.5 Const General: cooperative, comfortable, no acute distress, alert, awake and Physically active Nutritional Appearance: thin Orientation/consciousness: patient oriented x3 Limitations: no limitations HEENT Head: Yes normocephalic and Yes atraumatic Neck Neck: Yes trachea midline, Yes supple and Yes no JVD Resp Effort & Inspection: normal respiratory effort Auscultation: clear to auscultation bilaterally and diminished lung sounds Cardio Jugular venous distension: no JVD Palpation: normal PMI Rate: regular rate Rhythm: abnormal rhythm with ectopic beats Heart sounds: S1 normal heart sound present, S2 normal heart sound present, no click, no gallops and Murmur heart sound present systolic early, decrescendo and crescendo GI Auscultation: normal bowel sounds Skin General skin exam: no rashes or lesions noted Neuro General: patient oriented x3 and no focal motor deficits Speech: No Abnormal speech present Extrem General: Yes no clubbing, cyanosis or edema Psych Appearance: grossly normal Office Procedures EKG Details: EKG shows normal sinus rhythm with normal EKG [id number], Complete Assessment & Plan Assessment & Plan (1) Chest pain: Code(s): R07.9 - Chest pain, unspecified Plan: Patient with longstanding chest pain episode and says the chest pain episodes similar since he was young man but also concerning for exertional chest pain syndrome and suggestive angina. His extensive history of coronary artery disease in the past. History is limited probably due to his cognitive issues. I have advised him to undergo exercise myocardial perfusion imaging to evaluate for myocardial ischemia that may changes medical treatment plan. Meanwhile I will start him on low-dose Toprol-XL 25 mg daily given his recent syncopal event and blood pressure in the normotensive range today. Would hold off on other medications at this point time. Also suggest echocardiogram to evaluate LV systolic and diastolic function to evaluate for regional wall motion abnormality in pulmonary hypertension. Further treatment based on the findings. Advised to come to the emergency room he has prolonged unrelieved chest pain at rest. (2) Coronary artery disease: Code(s): I25.10 - Atherosclerotic heart disease of [place] coronary artery without angina pectoris Plan: Extensive CAD with prior stenting to the LAD in 2019 and then stenting to the RCA in 2021. He did have moderate nonobstructive disease in the circumflex territory. Currently having chest pain syndrome which is concerning. Not on antiplatelet regimen given that he is on full oral anticoagulation to reduce bleeding risk. His blood pressure is optimized although I will start him on low-dose metoprolol therapy as above. He has not on statin therapy for unclear reason. Will start him on Lipitor to try to target his goal LDL less than 70 mg/dL. Follow-up lipid panel in 6 weeks time. (3) Paroxysmal atrial fibrillation: Code(s): I48.0 - Paroxysmal atrial fibrillation Plan: Paroxysmal atrial fibrillation, currently suppressed with 1 episode about 2 months ago. History is very difficult to obtain. Will obtain a 7 day Holter monitor. Start him on Toprol-XL 25 mg daily. Stress mitigation strategies avoidance stimulants was discussed. Continue current full oral anticoagulation Eliquis 5 mg b.i.d.. Quarterly renal function test should be pursued. Follow up in the clinic in 6 weeks time, sooner p.r.n.. Thank you for allowing me to partake in his care Orders: Orders NM cardiolite stress test 2 Weeks R07.9 - Chest pain, unspecified ECG 7 day holter monitor Today I48.0 - Paroxysmal atrial fibrillation CA echo transthoracic complete Today R07.9 - Chest pain, unspecified CA stress test Today R07.9 - Chest pain, unspecified Lipid Panel 6 Weeks I25.10 - Atherosclerotic heart disease of [place] coronary artery without angina pectoris Medications: New metoprolol succinate ER (Toprol XL) 25 mg PO DAILY 30 tabs 5RF I48.0 - Paroxysmal atrial fibrillation atorvastatin 80 mg PO DAILY 30 tabs 5RF I48.0 - Paroxysmal atrial fibrillation Coding Level of Care Code New Pt Level 4 (17570) Diagnoses Chest pain R07.9 Coronary artery disease I25.10 Paroxysmal atrial fibrillation I48.0 CPT Codes EKG - CPT: 27338-[id number], Complete ([id number])
== END 2023-11-18 13:44 | disposition home or self-care (01) ==
PROVIDERS: PCP Internal Medicine; Visit Provider Internal Medicine Cardiovascular Disease
DX: R07.9 Chest pain, unspecified (principal); I25.10 Atherosclerotic heart disease of native coronary artery without angina pectoris; I48.0 Paroxysmal atrial fibrillation
CPT/HCPCS: 93010; 99204

== ENCOUNTER → 2023-11-18 12:56 | Outpatient (BNVA) | payer MEDICARE, BC, SELFPAY | PROVIDERS: PCP Internal Medicine; Visit Provider Internal Medicine Cardiovascular Disease | DX: R07.9 Chest pain, unspecified (principal); I25.10 Atherosclerotic heart disease of native coronary artery without angina pectoris; I48.0 Paroxysmal atrial fibrillation; Z79.899 Other long term (current) drug therapy | CPT/HCPCS: 93005; 99202 ==

== ENCOUNTER → 2023-12-10 12:40 | Outpatient (REF) | payer MEDICARE, BC, SELFPAY ==
--- NOTE | 2023-12-10 12:49 | CA_ITS ---
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 The calculated ejection fraction is 53% by biplane method. - The basal inferior, mid inferior, and basal inferolateral segments are hypokinetic. - There is moderate calcification of the aortic valve. There is mild aortic valve stenosis. Findings Left Ventricle Normal left ventricular cavity size. There is normal left ventricular wall thickness. The left ventricular systolic function is low normal. The calculated ejection fraction is 53% by biplane method. Diastolic function is indeterminate on the basis of available data. Wall Motion Rest Echo Findings The basal inferior, mid inferior, and basal inferolateral segments are hypokinetic. Right Ventricle Normal right ventricular cavity size and systolic function. Atria Both atria are normal in size. Aortic Valve There is moderate calcification of the aortic valve. There is mild aortic valve stenosis. There is trace (trivial) aortic valve regurgitation. Mitral Valve The mitral valve appears normal. There is mild mitral annular calcification. There is trace mitral valve regurgitation. There is no mitral valve stenosis. Pulmonic Valve The pulmonic valve is likely normal. Tricuspid Valve There is mild tricuspid valve regurgitation. There is no evidence of pulmonary hypertension. Great Vessels The aorta was not well visualized. Venous The inferior vena cava is normal in size and collapses greater than 50% with inspiration. Pericardium/Pleural There is no evidence of pericardial effusion. Prior Study Comparison No prior study available for comparison. Measurements 2D Linear Measurements IVSd: 0.82 0.6-0.9/0.6-1.0 cm LVIDd: 4.19 3.9-5.3/4.2-5.9 cm LVIDd Index: 2.35 2.4-3.2/2.2-3.1 cm/m2 LVIDs: 3.36 2.0-3.6 cm LVPWd: 0.72 0.7-1.1 cm LA Diam: 3.40 2.7-3.8/3.0-4.0 cm LAIDs Index: 1.91 1.5-2.3 cm/m2 LV Mass: 118.85 67-162/88-224 g LV Mass Index: 66.77 43-95/49-115 g/m2 LVOT Diam: 2.00 3.0+(-)1.3 cm 2D Systolic Function EF 4C: 53.60 >55% EF 2C: 50.70 >55% EF BiP: 53.30 >55% Mitral Valve MV Pk E: 1.02 MV Decel Time: 197.00 E'Lateral: 9.20 E'Medial: 7.38 E/E' Med: 13.80 E/E' Lat: 11.10 PHT: 58.00 MVA PHT: 3.79 Decel Allen: 5.65 Aortic Valve AoV Pk Arturo: 1.57 AoV Mn Arturo: 1.12 AoV VTI: 0.31 AoV Pk Grad: 10.00 Aov Mn Grad: 6.00 CARRILLO Cont.VTI: 1.44 LVOT LVOT Pk Arturo: 0.74 LVOT Mn Arturo: 0.47 LVOT VTI: 0.14 LVOT Pk Grad: 2.00 LVOT Mn Grad: 1.00 LVOT Diam: 2.00 LVOT Area: 3.14 Diastolic Function MV Pk E: 1.02 E'Medial: 7.38 E/E' Med: 13.80 E' Laterial: 9.20 E/E' Lat: 11.10 Right Ventricle TAPSE (mm): 19.10 TVS' Arturo: 10.50 Tricuspid Valve TR Pk Arturo: 2.26 TR Pk Grad: 20.00 RA Press: 3.00 RVSP: 23.00 Updated in Other Vendor System with Status of Final Francisco Baldwin MD electronically signed on 12/11/2023 3:55:51 PM with status of Final
--- NOTE | 2023-12-10 12:49 | HM_ITS ---
* Total monitoring time 6 days. * Underlying rhythm is sinus with an average rate of 74/Min. * Atrial fibrillation noted around 20% the time. Longest episode 2 hours 23 minutes. Fastest 164/Min. * Occasional supraventricular ectopy with a burden of 1.4%. * Very rare ventricular ectopy. * No significant pauses or AV blocks. * Patient markers used in association with sinus rhythm, supraventricular ectopy, atrial fibrillation. * Pain in patient diary correlates with supraventricular ectopy. MTDD
== END ==
LOC: HO.CARD 12:40
PROVIDERS: PCP Internal Medicine; Visit Provider Internal Medicine Cardiovascular Disease
DX: R07.9 Chest pain, unspecified (principal); I48.0 Paroxysmal atrial fibrillation
CPT/HCPCS: 93242; 93306

== ENCOUNTER → 2023-12-10 12:49 | Outpatient (BNV) | payer MEDICARE, BC, SELFPAY | PROVIDERS: PCP Internal Medicine; Visit Provider Internal Medicine | DX: I48.0 Paroxysmal atrial fibrillation (principal); I47.10 Supraventricular tachycardia, unspecified | CPT/HCPCS: 93244; 93306 ==

== ENCOUNTER → 2023-12-17 09:42 | Outpatient (REF) | payer MEDICARE, BC, SELFPAY | LOC: HO.CARD 09:42 | PROVIDERS: PCP Internal Medicine; Visit Provider Internal Medicine Cardiovascular Disease | DX: Z13.89 Encounter for screening for other disorder (principal) ==

== ENCOUNTER 2023-12-31 09:28 | Outpatient (AMB) | payer MEDICARE, BC, SELFPAY ==
[2023-12-31 09:39] VITALS: BP 134/76; PULSE 78; O2SAT 98; BMI 22.5
--- NOTE | 2023-12-31 09:39 | MHC.PC.OV ---
Vital Signs 12/31/23 09:39 Height 5 ft 8 in Weight 148 lb 2 oz BMI 22.5 BP 134/76 Blood Pressure Location Rt brachial Position Sitting Pulse 78 Pulse Source Pulse Oximeter Pulse Oximetry (%) 98 Oxygen Delivery Method Room Air Intake Visit Reasons: Follow up Allergies lisinopril [LISINOPRIL] Allergy (Severe, Verified 12/31/23 09:41) Angioedema Penicillins [PENICILLINS] Allergy (Severe, Verified 12/31/23 09:41) Anaphylaxis erythromycin base [ERYTHROMYCIN BASE] Allergy (Intermediate, Verified 12/31/23 09:41) Rash penicillin V Allergy (Unknown, Verified 12/31/23 09:41) throat swelling and rash, anaphylaxis Medication List - Last Reconciled 12/31/23 by Mohinder Waller MD apixaban 5 mg PO BID atorvastatin 80 mg PO DAILY xlmwbyeubdt-nspfbnmbd-hqbdipyx 200-62.5-25 mcg (Trelegy Ellipta) 1 inh inhalation DAILY 30 days metoprolol succinate ER (Toprol XL) 25 mg PO DAILY nitroglycerin 0.4 mg sublingual Q5M PRN omeprazole 20 mg PO BID Tobacco use date assessed: 12/31/23 Fall risk assessment: No Falls in past year Last assessed Fall Risk: 12/31/23 Dental Screening Dental Screen Date: 12/31/23 Did you have a dental visit in the last 12 months?: No Did you have a dental problem in the last 6 months where you did not have access to dental care?: No Was dental information given to patient?: No HPI Follow up HPI Details Patient is 78-year-old gentleman came in today for his regular follow-up appointment Patient have severe COPD, currently he is seeing Dr. Freire, military source operations specialist at [facility] and appointment is coming up this month Patient also have history of lung cancer with partial right-sided lung resection He is oxygen dependent however since he has lost weight he has not been using it too frequently. Patient have coronary artery disease with 4 stents, he is on blood thinner chronically He also have atrial fibrillation and is currently seeing parks and recreation worker [facility]. He is scheduled for nuclear stress test this month Blood pressure is stable Most of his medications are through Cardiology or account management specialist Except omeprazole that he is taking for GERD. Patient is having memory issues, for that he stopped working as well Currently patient is eating frozen dinners, patient tells me that he does not like to cook and it is too much work He is due for labs, order placed to be done today. Patient have chronic lower lumbar pain radiating to right leg which is flaring up He tells me that his right leg gives out on him, I have placed a referral to pain management for evaluation and treatment He has appointment with me in May Blood pressure is slightly elevated, notified patient to call his parks and recreation worker office and have a follow-up appointment blood pressure is managed through them. [facility] Medical History Paroxysmal atrial fibrillation Atrial fibrillation Oxygen dependent Sleep apnea Lipid disorder Chronic GERD BPH (benign prostatic hyperplasia) Lung cancer Hypertension, essential COPD (chronic obstructive pulmonary disease) Surgical History History of lobectomy of lung History of cataract surgery Family History Father No problems noted. Mother No problems noted. Brother Lung cancer Other Mental health disorder Substance use disorder Social History Housing: Other Alcohol intake: never Patient Tobacco Use Status: Former Tobacco user Quit Date: 1979 Tobacco use type: Cigarette e-Cigarette/Vaping Use: Never Used service: Yes Current occupational status: retired Cognitive needs: No Hearing needs: No Vision needs: No Questionnaire PHQ-9 Over the last 2 weeks, how often have you been bothered by any of the following problems? 1. Little interest or pleasure in doing things: not at all 2. Feeling down, depressed, or hopeless: several days 3. Trouble falling or staying asleep, or sleeping too much: several days 4. Feeling tired or having little energy: several days 5. Poor appetite or overeating: several days 6. Feeling bad about yourself - or that you are a failure or have let yourself or your family down: not at all 7. Trouble concentrating on things, such as reading the newspaper or watching television: several days 8. Moving or speaking so slowly that other people could have noticed. Or the opposite - being so fidgety or restless that you have been moving around a lot more than usual: not at all 9. Thoughts that you would be better off or of hurting yourself in some way: not at all Total score: 5 Depression Screening Interpretation: Negative Depression Screening Done: Yes 52187 - PHQ-9 Billing: Yes Source: Developed by Drs. Haja Magallon, Roseann Hicks, Cristiano Ward and colleagues, with an educational grady from [employer]. Thrive Questionnaire Date Thrive assessed: 10/26/21 AUDIT C Alcohol Use Questionnaire (AUDIT-C) 1. How often do you have a drink containing alcohol?: Never 3. How often do you have six or more drinks on one occasion?: Never Total Score: 0 Score Reviewed/Action Taken: Yes SHAHBAZ-7 AMB Questionnaire SHAHBAZ-7 Date SHAHBAZ - 7 assessed: 10/26/21 Source: Developed by Drs. Haja Magallon, Roseann Hicks, Cristiano Ward and colleagues, with an educational grady from [employer]. Review of Systems Const Denies chills and Denies fever(s) ENT Denies epistaxis and Denies nasal discharge Card Denies chest pain Resp Denies chest congestion, Denies cough and Denies hemoptysis GI Denies diarrhea and Denies nausea Skin/Breast Denies rash Neuro Reports no additional complaints Psych Reports no additional complaints Endo Reports no additional complaints Physical exam (Primary Care) Vital Signs: Last Vital Signs Pulse 78 12/31/23 09:39 BP 134/76 12/31/23 09:39 Pulse Ox 98 12/31/23 09:39 Oxygen Delivery Method Room Air 12/31/23 09:39 BMI result Body Mass Index 22.5 Tobacco/Smoking Status: Tobacco use Status Tobacco use date assessed 12/31/23 12/31/23 09:43 Patient Tobacco Use Status Former Tobacco user 12/31/23 09:43 Tobacco use type Cigarette 12/31/23 09:43 e-Cigarette/Vaping Use Never Used 12/31/23 09:43 Depression Screening Interpretation: Negative Thrive Assessment: Date of Thrive Assessment Date Thrive assessed 10/26/21 12/31/23 09:43 Const General: cooperative, comfortable and no acute distress Orientation/consciousness: patient oriented x3 HENMT Head: Yes normocephalic Eyes General: appearance normal, both eyes and all related structures Neck Neck: Yes supple Resp Effort & Inspection: normal respiratory effort, no cough and no stridor Cardio Heart sounds: S1 normal heart sound present and S2 normal heart sound present Skin General skin exam: turgor normal Neuro General: patient oriented x3, tone normal and moves all extremities Extrem Right lower extremity: no edema Left lower extremity: no edema Assessment and Plan Assessment & Plan (1) Chronic GERD: Code(s): K21.9 - Gastro-esophageal reflux disease without esophagitis (2) COPD (chronic obstructive pulmonary disease): Code(s): J44.9 - Chronic obstructive pulmonary disease, unspecified Qualifiers: COPD type: emphysema Emphysema type: panlobular Qualified Code(s): J43.1 - Panlobular emphysema (3) Hypertension, essential: Code(s): I10 - Essential (primary) hypertension (4) Lipid disorder: Code(s): E78.9 - Disorder of lipoprotein metabolism, unspecified (5) Oxygen dependent: Code(s): Z99.81 - Dependence on supplemental oxygen (6) Coronary artery disease: Code(s): I25.10 - Atherosclerotic heart disease of [place] coronary artery without angina pectoris Qualifiers: Associated angina: without angina Coronary Disease-Associated Artery/Lesion type: [place] artery [place] vs. transplanted heart: [place] heart Qualified Code(s): I25.10 - Atherosclerotic heart disease of [place] coronary artery without angina pectoris (7) Paroxysmal atrial fibrillation: Code(s): I48.0 - Paroxysmal atrial fibrillation (8) Multiple medical problems: Code(s): R69 - Illness, unspecified (9) Right lumbar radiculitis: Code(s): M54.16 - Radiculopathy, lumbar region (10) History of lung cancer: Code(s): Z85.118 - Personal history of other malignant neoplasm of bronchus and lung Plan Patient is 78-year-old gentleman came in today for his regular follow-up appointment Patient have severe COPD, currently he is seeing Dr. Freire, military source operations specialist at [facility] and appointment is coming up this month Patient also have history of lung cancer with partial right-sided lung resection He is oxygen dependent however since he has lost weight he has not been using it too frequently. Patient have coronary artery disease with 4 stents, he is on blood thinner chronically He also have atrial fibrillation and is currently seeing parks and recreation worker [facility]. He is scheduled for nuclear stress test this month Blood pressure is stable Most of his medications are through Cardiology or account management specialist Except omeprazole that he is taking for GERD. Patient is having memory issues, for that he stopped working as well Currently patient is eating frozen dinners, patient tells me that he does not like to cook and it is too much work He is due for labs, order placed to be done today. Patient have chronic lower lumbar pain radiating to right leg which is flaring up He tells me that his right leg gives out on him, I have placed a referral to pain management for evaluation and treatment He has appointment with me in May Blood pressure is slightly elevated, notified patient to call his parks and recreation worker office and have a follow-up appointment blood pressure is managed through them. Orders: Orders Comprehensive Met. Panel Today E78.9 - Disorder of lipoprotein metabolism, unspecified, I10 - Essential (primary) hypertension, I25.10 - Atherosclerotic heart disease of [place] coronary artery without angina pectoris, I48.0 - Paroxysmal atrial fibrillation, J43.1 - Panlobular emphysema, K21.9 - Gastro-esophageal reflux disease without esophagitis, Z99.81 - Dependence on supplemental oxygen Vitamin D 25-OH (D2 and D3) Today E78.9 - Disorder of lipoprotein metabolism, unspecified, I10 - Essential (primary) hypertension, I25.10 - Atherosclerotic heart disease of [place] coronary artery without angina pectoris, I48.0 - Paroxysmal atrial fibrillation, J43.1 - Panlobular emphysema, K21.9 - Gastro-esophageal reflux disease without esophagitis, Z99.81 - Dependence on supplemental oxygen Complete Blood Count Auto Diff Today E78.9 - Disorder of lipoprotein metabolism, unspecified, I10 - Essential (primary) hypertension, I25.10 - Atherosclerotic heart disease of [place] coronary artery without angina pectoris, I48.0 - Paroxysmal atrial fibrillation, J43.1 - Panlobular emphysema, K21.9 - Gastro-esophageal reflux disease without esophagitis, Z99.81 - Dependence on supplemental oxygen LDL Cholesterol Direct Today E78.9 - Disorder of lipoprotein metabolism, unspecified, I10 - Essential (primary) hypertension, I25.10 - Atherosclerotic heart disease of [place] coronary artery without angina pectoris, I48.0 - Paroxysmal atrial fibrillation, J43.1 - Panlobular emphysema, K21.9 - Gastro-esophageal reflux disease without esophagitis, Z99.81 - Dependence on supplemental oxygen TSH reflex Free T4 Today E78.9 - Disorder of lipoprotein metabolism, unspecified, I10 - Essential (primary) hypertension, I25.10 - Atherosclerotic heart disease of [place] coronary artery without angina pectoris, I48.0 - Paroxysmal atrial fibrillation, J43.1 - Panlobular emphysema, K21.9 - Gastro-esophageal reflux disease without esophagitis, Z99.81 - Dependence on supplemental oxygen Referrals Pain Management Referral M54.16 - Radiculopathy, lumbar region Coding Level of Care Code Est Pt Level 4 (40767) Complex EM visit Add On G2211 Diagnoses Chronic GERD K21.9 Panlobular emphysema J43.1 COPD type: emphysema Emphysema type: panlobular Hypertension, essential I10 Lipid disorder E78.9 Oxygen dependent Z99.81 Coronary artery disease involving [place] coronary artery of [place] heart without angina pectoris I25.10 Associated angina: without angina Coronary Disease-Associated Artery/Lesion type: [place] artery [place] vs. transplanted heart: [place] heart Paroxysmal atrial fibrillation I48.0 Multiple medical problems R69 Right lumbar radiculitis M54.16 History of lung cancer Z85.118
== END 2023-12-31 14:10 | disposition home or self-care (01) ==
PROVIDERS: PCP Internal Medicine; Visit Provider Internal Medicine
DX: K21.9 Gastro-esophageal reflux disease without esophagitis (principal); J43.1 Panlobular emphysema; I48.0 Paroxysmal atrial fibrillation; I10 Essential (primary) hypertension; E78.9 Disorder of lipoprotein metabolism, unspecified; Z99.81 Dependence on supplemental oxygen; I25.10 Atherosclerotic heart disease of native coronary artery without angina pectoris; R69 Illness, unspecified; M54.16 Radiculopathy, lumbar region; Z85.118 Personal history of other malignant neoplasm of bronchus and lung
CPT/HCPCS: 99214; G2211

== ENCOUNTER 2024-01-09 10:03 | Outpatient (AMB) | payer MEDICARE, BC, SELFPAY ==
[2024-01-09 10:28] VITALS: BP 118/66; PULSE 57; O2SAT 98; BMI 22.5
--- NOTE | 2024-01-09 10:28 | A.OFFVIS_ITS ---
Vital Signs 01/09/24 10:28 Height 5 ft 8 in Weight 147 lb 11.355 oz BMI 22.5 BP 118/66 Blood Pressure Location Rt brachial Position Sitting Pulse 57 Pulse Source Doppler Pulse Oximetry (%) 98 Oxygen Delivery Method Room Air Intake Visit Reasons: copd Allergies lisinopril [LISINOPRIL] Allergy (Severe, Verified 01/09/24 10:30) Angioedema Penicillins [PENICILLINS] Allergy (Severe, Verified 01/09/24 10:30) Anaphylaxis erythromycin base [ERYTHROMYCIN BASE] Allergy (Intermediate, Verified 01/09/24 10:30) Rash penicillin V Allergy (Unknown, Verified 01/09/24 10:30) throat swelling and rash, anaphylaxis HPI HPI copd: Details: 77-year-old gentleman, former greater than 30 pack-year smoker, quit 2006 with underlying 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 supplemental oxygen dependent COPD.? After the last office visit secondary to insurance reason he was switched to Trelegy with good control of his symptoms. He is also seeing Cardiology at [facility] at this time. He denies recent exacerbations. Not fully compliant supplemental oxygen. [facility] Medical History Paroxysmal atrial fibrillation Atrial fibrillation Oxygen dependent Sleep apnea Lipid disorder Chronic GERD BPH (benign prostatic hyperplasia) Lung cancer Hypertension, essential COPD (chronic obstructive pulmonary disease) Surgical History History of lobectomy of lung History of cataract surgery Family History Father No problems noted. Mother No problems noted. Brother Lung cancer Other Mental health disorder Substance use disorder Social History Housing: Other Alcohol intake: never Patient Tobacco Use Status: Former Tobacco user Quit Date: 1979 Tobacco use type: Cigarette e-Cigarette/Vaping Use: Never Used service: Yes Current occupational status: retired Cognitive needs: No Hearing needs: No Vision needs: No Review of Systems Const Denies daytime sleepiness, Denies excessive sweating, Denies fatigue, Denies fever(s), Denies lethargy, Denies malaise, Denies night sweats, Denies snoring and Denies weight loss Eyes Denies blurry vision and Denies itchy eyes ENT Denies nasal congestion, Denies post nasal drip, Denies sinus pain, Denies sinus pressure and Denies other ( Thrush) Card Denies chest pain, Denies pedal edema, Denies dyspnea, Denies orthopnea and Denies paroxysmal nocturnal dyspnea Resp Denies cough, Denies hemoptysis, Denies excessive phlegm production, Denies dyspnea, Denies snoring and Denies wheezing GI Denies abdominal pain and Denies heartburn Musc Denies myalgias, Denies arthralgias and Denies joint swelling Skin/Breast Denies rash Neuro Denies memory loss and Denies seizure-like activity Psych Denies abnormal sleep pattern, Denies anxiety and Denies memory loss Endo Denies excessive sweating, Denies fatigue and Denies heat intolerance Adán/Lymph Denies easy bruising Aller/Immun Denies itchy eyes, Denies seasonal rhinorrhea and Denies wheezing Physical Exam Vital Signs: Last Vital Signs Pulse 57 01/09/24 10:28 BP 118/66 01/09/24 10:28 Pulse Ox 98 01/09/24 10:28 Oxygen Delivery Method Room Air 01/09/24 10:28 BMI result Body Mass Index 22.5 Const General: no acute distress and alert Nutritional Appearance: not obese Orientation/consciousness: Other orientation findings ( oriented) HEENT Head: Yes atraumatic Eyes General: appearance normal, both eyes and all related structures Sclerae: sclerae normal EOM: EOMs intact bilaterally Neck Neck: Yes supple Lymphatic: no lymphadenopathy noted Resp Effort & Inspection: normal respiratory effort and no use of accessory muscles Auscultation: clear to auscultation bilaterally Cardio Rate: regular rate Rhythm: regular rhythm Heart sounds: no gallops, no murmurs and no rubs Skin General skin exam: other ( warm) Extrem General: No clubbing, No cyanosis and No edema Assessment & Plan Assessment & Plan (1) COPD (chronic obstructive pulmonary disease): Code(s): J44.9 - Chronic obstructive pulmonary disease, unspecified Category: Medical Qualifiers: COPD type: emphysema Emphysema type: panlobular Qualified Code(s): J43.1 - Panlobular emphysema Plan: Well controlled on current regimen of Trelegy and albuterol MDI. Continue current regimen. (2) Oxygen dependent: Code(s): Z99.81 - Dependence on supplemental oxygen Category: Medical Plan: Continue supplemental oxygen to maintain O2 saturation of 88-92%. Compliance with supplemental oxygen reinforced with patient. Coding Level of Care Code Est Pt Level 4 (00714) Diagnoses Panlobular emphysema J43.1 COPD type: emphysema Emphysema type: panlobular Oxygen dependent Z99.81
== END 2024-01-09 10:41 | disposition home or self-care (01) ==
PROVIDERS: PCP Internal Medicine; Visit Provider Internal Medicine Pulmonary Disease
DX: J43.1 Panlobular emphysema (principal); Z99.81 Dependence on supplemental oxygen
CPT/HCPCS: 99214

== ENCOUNTER → 2024-01-09 10:03 | Outpatient (BNVA) | payer MEDICARE, BC, SELFPAY | PROVIDERS: PCP Internal Medicine; Visit Provider Internal Medicine Pulmonary Disease | DX: J43.1 Panlobular emphysema (principal); Z99.81 Dependence on supplemental oxygen | CPT/HCPCS: 99212 ==

== ENCOUNTER → 2024-01-16 08:56 | Outpatient (REF) | payer MEDICARE, BC, SELFPAY ==
--- NOTE | ~2024-01-16 | NM_ITS ---
Lexiscan Myocardial perfusion study Indication: Coronary artery disease, assess for ischemia Technique: The patient was brought in for a Lexiscan perfusion study on 01/16/2024 and was injected 0.4 mg of Lexiscan intravenously. Within a minute of this injection 25 mCi of sestamibi was given intravenously. Images were obtained using the SPECT gamma camera interlaced with the gating device. Images were obtained in supine position. Resting perfusion study was performed on 01/21/2024. Patient was administered 25 mCi of sestamibi intravenously at rest. Images were then obtained in supine position. Images were processed with the software and compared side to side in short axis, horizontal long axis and vertical long axis views. Total DLP 74mGy-cm. Findings: Raw acquisition reviewed. Right arm by the patient's side. The stress perfusion study showed diminished tracer uptake at the apex, adjacent parts of septum and lateral wall with CT attenuation correction, anterior perfusion looks worse which is likely artifactual. [place] is similar. The gated study shows normal LV systolic function with calculated LVEF of 58%. LV cavity is normal in size. The gated study shows normal wall thickening and contraction of segments. Resting study shows no significant perfusion abnormality. Gating at rest reveals normal wall motion with ejection fraction at 58%. The findings are consistent with mild reversible apical defect. NM/NM cardiolite stress test Impression: 1. Myocardial perfusion imaging study shows mild to moderate reversible defect at the apex and adjacent septum/lateral wall. 2. Gated LVEF is 58% during stress and rest. 3. Transient ischemic dilatation not present. EKG component of the test reported separately.
--- NOTE | 2024-01-16 08:59 | CA_ITS ---
Acquisition Time: 2024-01-16 09:04:49 Total Exercise Time: 00:02:00 Test Indications: afib Medications: see h Protocol: LEXISCAN Max HR: 090 BPM 62% of Pred: 143 BPM Max BP: 132/066 mmHG Max Work Load: 1.0 METS Pharmacological stress test with Lexiscan injection while sitting and kicking his legs, with a shooting pain on left side at 1:15 sec during test which resolved quickly. With isolated PACs, with normotensive response to exercise, with nondiagnoisitic EKGs. Aminophylline 75mg IVP given to reverse Lexiscan, Nuclear images pending. Test reviewed with Dr. Avila. Referred By: Trent Triplett Overread By: Brigette Umaña
== END ==
LOC: HO.CARD 08:56
PROVIDERS: PCP Internal Medicine; Visit Provider Internal Medicine Cardiovascular Disease
DX: R07.9 Chest pain, unspecified (principal); I48.0 Paroxysmal atrial fibrillation
CPT/HCPCS: 78452; 93017; A9500; J0280; J2785

== ENCOUNTER → 2024-01-16 08:59 | Outpatient (BNV) | payer MEDICARE, BC, SELFPAY | PROVIDERS: PCP Internal Medicine; Visit Provider Nurse Practitioner | DX: I25.10 Atherosclerotic heart disease of native coronary artery without angina pectoris (principal) | CPT/HCPCS: 78452; 93016; 93018 ==

== ENCOUNTER 2024-02-02 08:58 | Outpatient (AMB) | payer MEDICARE, BC, SELFPAY ==
--- NOTE | 2024-02-02 09:00 | A.OFFVIS_ITS ---
Vital Signs 02/02/24 09:06 02/02/24 10:04 Height 5 ft 8 in Weight 144 lb BMI 21.9 BP 198/89 H 152/87 H Blood Pressure Location Rt brachial Rt brachial Position Sitting Sitting Pulse 67 101 H Pulse Source Pulse Oximeter Pulse Oximeter Pulse Oximetry (%) 97 Oxygen Delivery Method Room Air Intake Visit Reasons: LUMBAR RADICULOPATHY Intake Note: Pain today 0/10 in back, 2/10 neck and right hip Rn Transplant Required: No Accompanied by: Self / Same As Patient Allergies lisinopril [LISINOPRIL] Allergy (Severe, Verified 02/02/24 09:05) Angioedema Penicillins [PENICILLINS] Allergy (Severe, Verified 02/02/24 09:05) Anaphylaxis erythromycin base [ERYTHROMYCIN BASE] Allergy (Intermediate, Verified 02/02/24 09:05) Rash penicillin V Allergy (Unknown, Verified 02/02/24 09:05) throat swelling and rash, anaphylaxis HPI HPI LUMBAR RADICULOPATHY: Details: Patient is a pleasant 78-year-old male is history of lung cancer with partial right-sided lung resection, severe COPD, a fibrillation, chronic low back pain, h/o right JANET presents today for initial evaluation of of exacerbation of chronic neck pain and low back pain with radiation into his right hip. Patient reports minimal neck and no back pain today. Denies any recent trauma, injury, or falls. Reports parachute injury while in . Patient also remembers initial neck sprain injury when he was riding on the train several years ago and quickly turned to the left to pass his ticket and since then has been having intermittent flare ups of neck spasms and stiffness. Patient was previously seen in outside pain clinic in [place], [place] and completed physical therapy and underwent neck injections about 8 months ago which provided him 2-3 months pain relief. 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 Patient reports neck pain is usually more bothersome than back pain. Neck pain increases with right lateral rotations and bending and localized to the right side of the posterior and lateral neck. Reports increased pain levels affect his general activity, daily functioning and recreational activities. Patient reports right leg has been giving out frequently when he pivots, changes his positions or walks. Denies any fever, abdominal or groin pain, weight loss, weakness, numbness or tingling in his upper or lower extremities, bladder or bowel dysfunction or saddle anesthesia. Patient reports decreased physical activity since COVID illness last year, diastolic CHF and cardiac stents. Uses O2 prn at home. He is followed by [facility]. Patient is on Eliquis. He lives alone and has been utilizing public transportation since last year. Reports mild cognitive decline with memory issues. Patient has been a good historian today. Oswestry neck disability index score=13 (mild disability) Location: Right side neck pain, low back pain, right hip pain Duration: Chronic pain for many years Characteristics of symptom or complaint: Tightness, aching, stiff, spasms, stabbing, sharp, throbbing, dull Aggravating or associated factors: Walking, movements, changing positions, stress Relieving factors: Tylenol, heat, hot shower, massage Treatment: PT 8 months ago at [place]; injections. Used to go to gym and lifting weights [facility] Medical History Paroxysmal atrial fibrillation Atrial fibrillation Oxygen dependent Sleep apnea Lipid disorder Chronic GERD BPH (benign prostatic hyperplasia) Lung cancer Hypertension, essential COPD (chronic obstructive pulmonary disease) Surgical History History of lobectomy of lung History of cataract surgery Family History Father No problems noted. Mother No problems noted. Brother Lung cancer Other Mental health disorder Substance use disorder Social History Housing: Other Alcohol intake: never Patient Tobacco Use Status: Former Tobacco user Tobacco use type: Cigarette e-Cigarette/Vaping Use: Never Used service: Yes Current occupational status: retired Cognitive needs: No Hearing needs: No Vision needs: No Review of Systems Const All systems reviewed & are unremarkable except as noted in HPI and below Physical Exam Vital Signs: Last Vital Signs Pulse 101 H 02/02/24 10:04 BP 152/87 H 02/02/24 10:04 Pulse Ox 97 02/02/24 09:06 Oxygen Delivery Method Room Air 02/02/24 09:06 BMI result Body Mass Index 21.9 General: Appears afebrile. Alert and oriented. Mood and affect appropriate. Follows and participates in conversation appropriately. Respiratory effort is unlabored. No cough. Able to transition from sit to stand unassisted. Ambulates with bilaterally normal heel strike and toe off, reports right lateral hip pain with walking. Neck Neck: Yes normal visual inspection, Yes no lymphadenopathy, Yes supple, No anterior neck swelling, No torticollis, Yes no JVD and No prominent dorsocervical fat pad General: Yes no CVA tenderness Back/Spine/Pelvis Other: Limited lumbar ROM with mild pain today. Slightly antalgic gait with mild limping. Can flex forward to 60-70 degrees and extend to 5-10 degrees before experiencing lumbar pain, increased pain with extension. Demonstrates 5/5 left and 4/5 right due to pain strength of quadriceps bilaterally as well as flexion/dorsiflexion of bilateral feet against resistance. 2+ pedal pulses bilaterally. Seated straight leg rise with dorsiflexion negative bilaterally. Diminished patellar and achilles reflexes bilaterally. Facet loading test positive bilaterally. Booker sign positive bilaterally, +Srinath?s, +Pelvic compression and +Stinchfield tests are positive on the right. Mild TTP to bilatearl GTB, right>left. No groin pain with I/E hip rotations. Valsalva ma neuver negative. Back: no CVA tenderness Cervical Spine: No collar present, No Lhermitte's sign positive, loss of normal cervical lordosis, cervical muscular tenderness (right), pain with cervical ROM (extension and right lateral rotation), No Cervical spine scars present, cervical spasm (mild on the right), No Cervical spine tenderness and No step off deformity Thoracic/Lumbar Spine: thoracic and lumbar spine normal to inspection, No Thoracic/lumbar spine scar(s), Lasegue's sign negative, straight leg raise ne gative bilaterally, pain with thoraco-lumbar ROM, No paraspinal muscle tenderness, thoraco-lumbar ROM limited, No thoracic spinal tenderness and lumbar spinal tenderness at L4 and at L5 Pelvis: buttock tenderness on the right and no sciatic notch tenderness Sacroiliac joints: bilaterally (right>left) tender to palpation Results Reviewed Results Reviewed: No imaging reports are available for review today. Assessment & Plan Assessment & Plan (1) Pain in right hip: Code(s): M25.551 - Pain in right hip Category: Medical (2) Right lumbar radiculitis: Code(s): M54.16 - Radiculopathy, lumbar region Category: Medical (3) Lumbosacral spondylosis: Code(s): M47.817 - Spondylosis without myelopathy or radiculopathy, lumbosacral region Category: Medical (4) Cervical spondylosis: Code(s): M47.812 - Spondylosis without myelopathy or radiculopathy, cervical region Category: Medical (5) Muscle spasms of neck: Code(s): M62.838 - Other muscle spasm Category: Medical Plan Lumbar and cervical spine and right hipimaging to assess degree of degenerative changes, any subluxation, listhesis, compression fractures or pars defects. Discussed treatments for axial cervical spine pain with muscle stiffness and spasms as well as low back with right SIJ components pain. Patient is interested to restart formal physical therapy for his current pain generators prior to any interventional treatments. Script provided for PT closer to patient's home per patient's request. Follow-up in 1-2 months to see response to physical therapy, if no response to physical therapy will consider further interventional strategy. All questions and concerns have been answered and patient agreed with the plan. Follow up for xray results/after PT and sooner as needed. Orders: Orders XR cervical spine 3V Today M47.812 - Spondylosis without myelopathy or radiculopathy, cervical region XR hip RT w PEL1V Today M25.551 - Pain in right hip XR lumbar spine 4V min Today M47.817 - Spondylosis without myelopathy or radiculopathy, lumbosacral region, M54.16 - Radiculopathy, lumbar region PT Evaluation and Treatment Today M25.551 - Pain in right hip, M47.812 - Spondylosis without myelopathy or radiculopathy, cervical region, M47.817 - Spondylosis without myelopathy or radiculopathy, lumbosacral region, M54.16 - Radiculopathy, lumbar region, M62.838 - Other muscle spasm Coding Level of Care Code New Pt Level 4 (55925) Diagnoses Pain in right hip M25.551 Right lumbar radiculitis M54.16 Lumbosacral spondylosis M47.817 Cervical spondylosis M47.812 Muscle spasms of neck M62.838
[2024-02-02 09:06] VITALS: BP 198/89; PULSE 67; O2SAT 97; BMI 21.9
[2024-02-02 10:04] VITALS: BP 152/87; PULSE 101
== END 2024-02-02 10:15 | disposition home or self-care (01) ==
PROVIDERS: PCP Internal Medicine; Visit Provider Nurse Practitioner Family
DX: M25.551 Pain in right hip (principal); M54.16 Radiculopathy, lumbar region; M47.817 Spondylosis without myelopathy or radiculopathy, lumbosacral region; M47.812 Spondylosis without myelopathy or radiculopathy, cervical region; M62.838 Other muscle spasm
CPT/HCPCS: 99204

== ENCOUNTER → 2024-02-02 08:58 | Outpatient (BNVA) | payer MEDICARE, BC, SELFPAY | PROVIDERS: PCP Internal Medicine; Visit Provider Nurse Practitioner Family | DX: M25.551 Pain in right hip (principal); M54.16 Radiculopathy, lumbar region; M47.817 Spondylosis without myelopathy or radiculopathy, lumbosacral region; M47.812 Spondylosis without myelopathy or radiculopathy, cervical region; M62.838 Other muscle spasm | CPT/HCPCS: 99202 ==

== ENCOUNTER 2024-02-11 09:31 | Outpatient (REF) | payer MEDICARE, BC, SELFPAY ==
--- NOTE | ~2024-02-11 | XR_ITS ---
EXAMINATION: XR LUMBOSACRAL SPINE WITH OBLIQUES CLINICAL INFORMATION: Spondylosis without myelopathy or radiculopathy COMPARISON: None available. TECHNIQUE: AP, both oblique, and lateral views of the lumbar spine. Lateral view of the lumbosacral junction. FINDINGS: The bones are diffusely demineralized. There are 5 nonrib-bearing lumbar-type vertebral bodies. The height of the vertebral bodies is well-maintained there is no significant disc space narrowing. There is multilevel degenerative facet joint disease. There is no spondylolysis or spondylolisthesis. There is partial visualization of a right total hip prostheses XR/XR lumbar spine 4V min IMPRESSION: 1. Multilevel degenerative facet joint disease. 2. The bones are diffusely demineralized.
--- NOTE | ~2024-02-11 | XR_ITS ---
EXAMINATION: XR HIP, RIGHT XR, AP pelvis CLINICAL INFORMATION: Pain in right hip Patient states chronic pain, no recent trauma COMPARISON: Right hip 05/24/2015, AP pelvis 05/24/2015 TECHNIQUE: Two views of the right hip. AP pelvis FINDINGS: No fracture. Alignment is anatomic. There is a total right hip replacement. Hardware appears intact. Mild ossific density just superior to the superior-lateral aspect of the acetabulum is likely represents heterotopic bone formation versus due to old trauma. There is moderate degenerative change of the left hip. There is mild degenerative change of the left sacroiliac joint. The right sacroiliac joint is within normal limits. The pubic symphysis is within normal limits. Sclerotic densities within the left ilium, one near the sacroiliac joint and the other the lateral aspect of the bone are unchanged. Small sclerotic density in the right superior pubic ramus is unchanged. XR/XR hip RT w PEL1V IMPRESSION: 1. Total right hip replacement without evidence of hardware complication. 2. Moderate osteoarthritis of the left hip. 3. Mild degenerative change of the left sacroiliac joint.
--- NOTE | ~2024-02-11 | XR_ITS ---
EXAMINATION: XR CERVICAL SPINE CLINICAL INFORMATION: Spondylosis without myelopathy or radiculopathy, cervical region COMPARISON: None available. TECHNIQUE: 3 views of the cervical spine were obtained. FINDINGS: The odontoid is obscured on the open-mouth views. The tip of the odontoid is somewhat obscured on the Fuchs view. The bones are diffusely demineralized. No fracture. Prevertebral soft tissues are within normal limits. There is marked disc space narrowing at C4-C5 and C5-C6. Large anterior marginal osteophyte extends off the inferior endplate of C4. There is mild retrolisthesis of C4 respect to C5 and mild anterolisthesis of C6 with respect to C7. XR/XR cervical spine 3V IMPRESSION: 1. Multilevel degenerative disc disease. 2. Multilevel subluxations.
== END 2024-02-11 09:32 | disposition home or self-care (01) ==
LOC: HO.XRAY 09:31
PROVIDERS: PCP Internal Medicine; Visit Provider Nurse Practitioner Family
DX: M47.812 Spondylosis without myelopathy or radiculopathy, cervical region (principal); M25.551 Pain in right hip; M47.817 Spondylosis without myelopathy or radiculopathy, lumbosacral region; M54.16 Radiculopathy, lumbar region
CPT/HCPCS: 72040; 72110; 73502

== ENCOUNTER 2024-02-13 10:25 | Outpatient (AMB) | payer MEDICARE, BC, SELFPAY ==
--- NOTE | 2024-02-13 10:27 | MHC.PC.OV ---
Vital Signs 02/13/24 10:29 Height 5 ft 8 in Weight 149 lb BMI 22.7 BP 120/70 Blood Pressure Location Lt brachial Position Sitting Pulse 100 Pulse Source Pulse Oximeter Pulse Oximetry (%) 62 L Oxygen Delivery Method Room Air Intake Visit Reasons: reg f/u Allergies lisinopril [LISINOPRIL] Allergy (Severe, Verified 02/13/24 10:32) Angioedema Penicillins [PENICILLINS] Allergy (Severe, Verified 02/13/24 10:32) Anaphylaxis erythromycin base [ERYTHROMYCIN BASE] Allergy (Intermediate, Verified 02/13/24 10:32) Rash penicillin V Allergy (Unknown, Verified 02/13/24 10:32) throat swelling and rash, anaphylaxis Medication List - Last Reconciled 02/13/24 by Mohinder Waller MD albuterol sulfate 90 mcg/actuation 2 puffs inhalation 6XD PRN apixaban 5 mg PO BID atorvastatin 80 mg PO DAILY Bevespi Aerosphere 9-4.8 mcg (glycopyrrolate-formoterol) 2 puffs inhalation BID 30 days NS hugriidmdxm-jxfahzunj-iexphkgp 200-62.5-25 mcg (Trelegy Ellipta) 1 ea inhalation DAILY metoprolol succinate ER (Toprol XL) 25 mg PO DAILY nitroglycerin 0.4 mg sublingual Q5M PRN omeprazole 20 mg PO BID Tobacco use date assessed: 02/13/24 Fall risk assessment: No Falls in past year Last assessed Fall Risk: 02/13/24 Dental Screening Dental Screen Date: 02/13/24 Did you have a dental visit in the last 12 months?: No Did you have a dental problem in the last 6 months where you did not have access to dental care?: No Was dental information given to patient?: No HPI reg f/u HPI Details Patient is a 78-year-old gentleman with History of lung cancer, paroxysmal atrial fibrillation, pulmonary nodules, coronary artery disease, hypertension, COPD, lipid disorder Came in to be evaluated for left-sided chest pain radiating to his left arm since this morning before breakfast Patient says that the pain is better now but still have it There is no diaphoresis, nausea or vomiting EKG done today did not show any acute findings However due to his symptoms suggestive of chest pain originating from heart we have called EMT for him to be taken to emergency room for further evaluation Patient was placed on 2 L of oxygen while waiting for the ambulance to arrive. Blood pressure is 120/70 [facility] Medical History Paroxysmal atrial fibrillation Atrial fibrillation Oxygen dependent Sleep apnea Lipid disorder Chronic GERD BPH (benign prostatic hyperplasia) Lung cancer Hypertension, essential COPD (chronic obstructive pulmonary disease) Surgical History History of lobectomy of lung History of cataract surgery Family History Father No problems noted. Mother No problems noted. Brother Lung cancer Other Mental health disorder Substance use disorder Social History Housing: Other Alcohol intake: never Patient Tobacco Use Status: Former Tobacco user Tobacco use type: Cigarette e-Cigarette/Vaping Use: Never Used service: Yes Current occupational status: retired Cognitive needs: No Hearing needs: No Vision needs: No Questionnaire PHQ-9 Over the last 2 weeks, how often have you been bothered by any of the following problems? 1. Little interest or pleasure in doing things: not at all 2. Feeling down, depressed, or hopeless: several days 3. Trouble falling or staying asleep, or sleeping too much: several days 4. Feeling tired or having little energy: several days 5. Poor appetite or overeating: several days 6. Feeling bad about yourself - or that you are a failure or have let yourself or your family down: not at all 7. Trouble concentrating on things, such as reading the newspaper or watching television: several days 8. Moving or speaking so slowly that other people could have noticed. Or the opposite - being so fidgety or restless that you have been moving around a lot more than usual: not at all 9. Thoughts that you would be better off or of hurting yourself in some way: not at all Total score: 5 Depression Screening Interpretation: Negative Depression Screening Done: Yes 26181 - PHQ-9 Billing: Yes Source: Developed by Drs. Haja Magallon, Roseann Hicks, Cristiano Ward and colleagues, with an educational grady from [employer]. Thrive Questionnaire Date Thrive assessed: 02/13/24 I am a: Patient What is your living situation today?: I have a steady place to live Within the past 12 months, did the food you bought not last and you didn't have the money to get more?: Never true Within the past 12 months, did you worry whether your food would run out before you got money to buy more?: Never true Do you have trouble paying for medicines?: No Do you have trouble getting transportation to medical appointments?: No Do you have trouble paying your heating and electricity bill?: No Do you have trouble taking care of your child, family member or friend?: No Do you have trouble with day-to-day activities such as bathing, preparing meals, shopping, managing finances, etc.?: No Are you currently unemployed and looking for a job?: No Are you interested in more education?: No Please select the resources that you would like help with: None Currently or been in a relationship where the following occur: no concerns reported THRIVE Score: 0 AUDIT C Alcohol Use Questionnaire (AUDIT-C) 1. How often do you have a drink containing alcohol?: Never 3. How often do you have six or more drinks on one occasion?: Never Total Score: 0 Score Reviewed/Action Taken: Yes SHAHBAZ-7 AMB Questionnaire SHAHBAZ-7 Date SHAHBAZ - 7 assessed: 02/13/24 Feeling nervous, anxious, or on edge: 0 = Not at all Not being able to stop or control worryin = Not at all Worrying too much about different things: 0 = Not at all Trouble relaxin = Not at all Being so restless that it is hard to sit still: 0 = Not at all Becoming easily annoyed or irritable: 0 = Not at all Feeling afraid as if something awful might happen: 0 = Not at all Total SHAHBAZ-7 score (0-4 normal; 5-9 mild; 10-14 moderate; 15-21 severe): 0 Source: Developed by Drs. Haja Magallon, Roseann Hicks, Cristiano Ward and colleagues, with an educational grady from [employer]. SHAHBAZ-7 Assessment Billing SHAHBAZ-7 Assessment Tool: SHAHBAZ-7 Assessment 46320 Review of Systems Const Denies chills and Denies fever(s) ENT Denies epistaxis and Denies nasal discharge Card Denies chest pain Resp Denies chest congestion, Denies cough and Denies hemoptysis GI Denies diarrhea and Denies nausea Skin/Breast Denies rash Neuro Reports no additional complaints Psych Reports no additional complaints Endo Reports no additional complaints Physical exam (Primary Care) Vital Signs: Last Vital Signs Pulse 100 02/13/24 10:29 BP 120/70 02/13/24 10:29 Pulse Ox 62 L 02/13/24 10:29 Oxygen Delivery Method Room Air 02/13/24 10:29 BMI result Body Mass Index 22.7 Tobacco/Smoking Status: Tobacco use Status Tobacco use date assessed 02/13/24 02/13/24 10:33 Patient Tobacco Use Status Former Tobacco user 02/13/24 10:28 Tobacco use type Cigarette 02/13/24 10:28 e-Cigarette/Vaping Use Never Used 02/13/24 10:28 Depression Screening Interpretation: Negative Thrive Assessment: Date of Thrive Assessment Date Thrive assessed 10/26/21 02/13/24 10:28 Currently or been in a relationship where the following occur: no concerns reported Const General: cooperative, comfortable and no acute distress Orientation/consciousness: patient oriented x3 HENMT Head: Yes normocephalic Eyes General: appearance normal, both eyes and all related structures Neck Neck: Yes supple Resp Effort & Inspection: normal respiratory effort, no cough and no stridor Cardio Heart sounds: S1 normal heart sound present and S2 normal heart sound present Skin General skin exam: turgor normal Neuro General: patient oriented x3, tone normal and moves all extremities Extrem Right lower extremity: no edema Left lower extremity: no edema Office Procedures EKG [id number], Complete Assessment and Plan Assessment & Plan (1) Acute chest pain: Code(s): R07.9 - Chest pain, unspecified (2) Left arm pain: Code(s): M79.602 - Pain in left arm (3) Paroxysmal atrial fibrillation: Code(s): I48.0 - Paroxysmal atrial fibrillation (4) Coronary artery disease: Code(s): I25.10 - Atherosclerotic heart disease of [place] coronary artery without angina pectoris Qualifiers: Associated angina: without angina Coronary Disease-Associated Artery/Lesion type: [place] artery [place] vs. transplanted heart: [place] heart Qualified Code(s): I25.10 - Atherosclerotic heart disease of [place] coronary artery without angina pectoris (5) Lipid disorder: Code(s): E78.9 - Disorder of lipoprotein metabolism, unspecified (6) COPD (chronic obstructive pulmonary disease): Code(s): J44.9 - Chronic obstructive pulmonary disease, unspecified Qualifiers: COPD type: emphysema Emphysema type: panlobular Qualified Code(s): J43.1 - Panlobular emphysema (7) Hypertension, essential: Code(s): I10 - Essential (primary) hypertension (8) Lung cancer: Comment: [place] [facility] [place] Code(s): C34.90 - Malignant neoplasm of unspecified part of unspecified bronchus or lung Qualifiers: Laterality: right Lung location: upper lobe of lung Qualified Code(s): C34.11 - Malignant neoplasm of upper lobe, right bronchus or lung Plan Patient is a 78-year-old gentleman with History of lung cancer, paroxysmal atrial fibrillation, pulmonary nodules, coronary artery disease, hypertension, COPD, lipid disorder Came in to be evaluated for left-sided chest pain radiating to his left arm since this morning before breakfast Patient says that the pain is better now but still have it There is no diaphoresis, nausea or vomiting EKG done today did not show any acute findings However due to his symptoms suggestive of chest pain originating from heart we have called EMT for him to be taken to emergency room for further evaluation Patient was placed on 2 L of oxygen while waiting for the ambulance to arrive. Blood pressure is 120/70 Coding Level of Care Code Est Pt Level 5 (43872) Diagnoses Acute chest pain R07.9 Left arm pain M79.602 Paroxysmal atrial fibrillation I48.0 Coronary artery disease involving [place] coronary artery of [place] heart without angina pectoris I25.10 Associated angina: without angina Coronary Disease-Associated Artery/Lesion type: [place] artery [place] vs. transplanted heart: [place] heart Lipid disorder E78.9 Panlobular emphysema J43.1 COPD type: emphysema Emphysema type: panlobular Hypertension, essential I10 Malignant neoplasm of upper lobe of right lung C34.11 Laterality: right Lung location: upper lobe of lung CPT Codes EKG - CPT: 60478-[id number], Complete ([id number]) Additional Codes SHAHBAZ-7 Assessment Billing - SHAHBAZ-7 Assessment Tool: SHAHBAZ-7 Assessment [id number] ([id number])
[2024-02-13 10:29] VITALS: BP 120/70; PULSE 100; O2SAT 62; BMI 22.7
== END 2024-02-13 15:40 | disposition home or self-care (01) ==
PROVIDERS: PCP Internal Medicine; Visit Provider Internal Medicine
DX: R07.9 Chest pain, unspecified (principal); I48.0 Paroxysmal atrial fibrillation; J43.1 Panlobular emphysema; C34.11 Malignant neoplasm of upper lobe, right bronchus or lung; M79.602 Pain in left arm; I25.10 Atherosclerotic heart disease of native coronary artery without angina pectoris; E78.9 Disorder of lipoprotein metabolism, unspecified; I10 Essential (primary) hypertension
CPT/HCPCS: 93000; 99215

== ENCOUNTER 2024-03-05 10:55 | Outpatient (AMB) | payer MEDICARE, BC, SELFPAY ==
--- NOTE | 2024-03-05 10:58 | A.OFFVIS_ITS ---
Vital Signs 03/05/24 10:59 Height 5 ft 8 in Weight 145 lb 8.081 oz BMI 22.1 BP 130/78 Blood Pressure Location Lt brachial Position Sitting Pulse 58 Intake Visit Reasons: f/up testing Intake Note: Follow-up after testing c/o sharp pain in chest at times lasting a few seconds [employer] Required: No Allergies lisinopril [LISINOPRIL] Allergy (Severe, Verified 02/13/24 10:32) Angioedema Penicillins [PENICILLINS] Allergy (Severe, Verified 02/13/24 10:32) Anaphylaxis erythromycin base [ERYTHROMYCIN BASE] Allergy (Intermediate, Verified 02/13/24 10:32) Rash penicillin V Allergy (Unknown, Verified 02/13/24 10:32) throat swelling and rash, anaphylaxis Medication List - Last Reconciled 03/05/24 by Trent Triplett MD albuterol sulfate 90 mcg/actuation 2 puffs inhalation 6XD PRN apixaban 5 mg PO BID atorvastatin 80 mg PO DAILY Bevespi Aerosphere 9-4.8 mcg (glycopyrrolate-formoterol) 2 puffs inhalation BID 30 days NS [id number]-[id number]-[id number] 200-62.5-25 mcg (Trelegy Ellipta) 1 ea inhalation DAILY nitroglycerin 0.4 mg sublingual Q5M PRN omeprazole 20 mg PO BID HPI Comments Details: Edwardo comes for follow-up after testing. Echocardiogram shows preserved LV ejection fraction with wall motion abnormality in the RCA territory. Stress testing shows distal LAD territory ischemia. He complains of sharp pain in his chest that comes randomly and is not associated with exertion that last for couple of seconds. He complains of exertional shortness of breath which is worse on heart and humid day but no associated chest discomfort. He denies any palpitations or irregular heartbeat. Takes all his medications. He said he never started metoprolol and he lost the prescription. He walks outside very lives about a mile or so. [facility] Medical History Paroxysmal atrial fibrillation Atrial fibrillation Oxygen dependent Sleep apnea Lipid disorder Chronic GERD BPH (benign prostatic hyperplasia) Lung cancer Hypertension, essential COPD (chronic obstructive pulmonary disease) Surgical History History of lobectomy of lung History of cataract surgery Family History Father No problems noted. Mother No problems noted. Brother Lung cancer Other Mental health disorder Substance use disorder Social History Housing: Other Alcohol intake: never Patient Tobacco Use Status: Former Tobacco user Tobacco use type: Cigarette e-Cigarette/Vaping Use: Never Used service: Yes Current occupational status: retired Cognitive needs: No Hearing needs: No Vision needs: No Review of Systems Const Denies chills, Denies fatigue, Denies fever(s), Denies frequent falls, Denies weakness, Denies weight gain and Denies weight loss ENT Denies dizziness Card Denies chest pain, Denies leg edema, Denies lightheadedness, Denies palpitat ions, Denies dyspnea, Denies dyspnea on exertion, Denies orthopnea and Denies other (loss of consciousness) Resp Denies cough, Denies dyspnea and Denies dyspnea on exertion GI Denies hematochezia and Denies change in stool character Musc Denies abnormal gait, Denies muscle weakness, Denies numbness, Denies radiating pain into limb and Denies tingling Neuro Denies Abnormal speech present, Denies abnormal gait, Denies dizziness, Denies frequent falls, Denies numbness, Denies tingling and Denies weakness Endo Denies fatigue and Denies palpitations Physical Exam Vital Signs: Last Vital Signs Pulse 58 03/05/24 10:59 BP 130/78 03/05/24 10:59 BMI result Body Mass Index 22.1 Const General: cooperative, comfortable, no acute distress, alert, awake and Physica lly active Nutritional Appearance: thin Orientation/consciousness: patient oriented x3 Limitations: no limitations Neck Neck: Yes trachea midline, Yes supple and Yes no JVD Resp Effort & Inspection: normal respiratory effort Auscultation: clear to auscultation bilaterally, wheezes scattered wheezes and diminished lung sounds Cardio Jugular venous distension: no JVD Palpation: normal PMI Rate: regular rate Rhythm: abnormal rhythm with ectopic beats Heart sounds: S1 normal heart sound present, S2 normal heart sound present, no click, no gallops and Murmur heart sound present systolic early, decrescendo and crescendo GI Auscultation: normal bowel sounds Skin General skin exam: no rashes or lesions noted Neuro General: patient oriented x3 and no focal motor deficits Speech: No Abnormal speech present Extrem General: Yes no clubbing, cyanosis or edema Psych Appearance: grossly normal Assessment & Plan Assessment & Plan (1) Coronary artery disease: Code(s): I25.10 - Atherosclerotic heart disease of [place] coronary artery without angina pectoris Category: Medical Qualifiers: Coronary Disease-Associated Artery/Lesion type: [place] artery [place] v s. transplanted heart: [place] heart Associated angina: without angina Qualified Code(s): I25.10 - Atherosclerotic heart disease of [place] coronary artery without angina pectoris Plan: Coronary artery disease with prior stenting of the LAD as well as the RCA with small area of ischemia in the distal LAD territory. Possible that he is developed new atherosclerotic lesion and/or maybe stent restenosis. Although he has currently not having any concerning symptoms that is suggestive of progressive angina. Also has no significant exertional chest discomfort. Mostly limited because of his COPD at this point in time. His sharp chest pain not suggestive of ischemia as they last for few seconds and not exertional in nature. I would however prescribe him amlodipine 2.5 mg both for blood pressure control as well as an antianginal. Continue full oral anticoagulation with Yeni enedina, and avoid aspirin therapy to reduce bleeding risk. Continue high- intensity statin therapy. Signs and symptoms consistent with angina were discussed with him. He seems and shows some understanding. Will follow up in 3 months time to assess any symptom changes (2) Paroxysmal atrial fibrillation: Code(s): I48.0 - Paroxysmal atrial fibrillation Category: Medical Plan: Paroxysmal atrial fibrillation which has overall remained suppressed. Continue aggressive control blood pressure. Continue full oral anticoagulation, currently on Eliquis 5 mg b.i.d.. Semi annual renal function test should be pursued. Advised to call me with any new symptoms. Currently does not require any antiarrhythmic drug therapy. Will follow up in the clinic in 3 months time, sooner p.r.n.. Thank you for allowing me to partake in his care Medications: New amlodipine 2.5 mg PO DAILY 30 tabs 5RF Refilled atorvastatin 80 mg PO DAILY 30 tabs 5RF I48.0 - Paroxysmal atrial fibrillation Coding Level of Care Code Est Pt Level 4 (64838) Diagnoses Coronary artery disease involving [place] coronary artery of [place] heart without angina pectoris I25.10 Coronary Disease-Associated Artery/Lesion type: [place] artery [place] vs. transplanted heart: [place] heart Associated angina: without angina Paroxysmal atrial fibrillation I48.0
[2024-03-05 10:59] VITALS: BP 130/78; PULSE 58; BMI 22.1
== END 2024-03-05 11:16 | disposition home or self-care (01) ==
PROVIDERS: PCP Internal Medicine; Visit Provider Internal Medicine Cardiovascular Disease
DX: I25.10 Atherosclerotic heart disease of native coronary artery without angina pectoris (principal); I48.0 Paroxysmal atrial fibrillation
CPT/HCPCS: 99214

== ENCOUNTER → 2024-03-05 10:55 | Outpatient (BNVA) | payer MEDICARE, BC, SELFPAY | PROVIDERS: PCP Internal Medicine; Visit Provider Internal Medicine Cardiovascular Disease | DX: I25.10 Atherosclerotic heart disease of native coronary artery without angina pectoris (principal); I48.0 Paroxysmal atrial fibrillation | CPT/HCPCS: 99212 ==